=== PATIENT | male | born 1960 | race Caucasian/White ===

== ENCOUNTER 2019-07-07 14:01 | Inpatient (IN) | payer OTHER ==
[~2019-07-07] VITALS: Ht 177.8 cm; Wt 66.8 kg
--- OUTSIDE RECORDS SUMMARY | 2019-07-07 14:04 | XMS REPORT ---
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 Allergies, Adverse Reactions, Alerts Allergy Name Allergy Type Status Severity Reaction(s) Onset Date Inactive Date Treating Clinician Comments No Known Allergies DA Active U 2016-07-17 00:00:00 Medications This patient has no known medications. Results Test Description Test Time Test Comments Text Results Atomic Results Result Comments [facility] 2019-02-06 15:18:00 RUN DATE: 02/06/19 [place] - Lab PAGE 1 RUN TIME: 1519 Specimen Inquiry RUN USER: INTERFACE PATIENT: ELIOT PRATT LOC: PRADIP U #: [id number] AGE/SX: 58/M ROOM: RE02/05/19[facility] DR: Babatunde Layne MD : 60 BED: DIS: STATUS: [facility] TLOC: SPEC #: [id number] RECD: 02/05/19 STATUS: EMELINAYordan MARSHALL #: [id number] JOSE: 02/05/19 DR: Babatunde Layne MD ENTERED: 02/05/19 SP TYPE: STOMACH OTHR DR: Chad Presley MD ORDERED: GROSS COPIES TO: Babatunde Layne MD [address] [address] Chad Presley MD [address] [place] [address] PROCEDURES: GROSS (02/06/19-3128) TISSUES: 1. ANTRAL BIOPSY - H-PYLORI 2. BODY BIOPSY OF STOMACH - BX 3. ESOPHAGUS, NOS - BX 4. TRANSVERSE COLON - POLYP CLINICAL HISTORY COLLECTION DATE: 02/05/19 AP FINAL DIAGNOSIS Antrum, biopsy: REACTIVE GASTROPATHY WITH PATCHY MILD CHRONIC INFLAMMATION NO INTESTINAL METAPLASIA SEEN NEGATIVE FOR HE LICOBACTER PYLORI NEGATIVE FOR MALIGNANCY Body of stomach, biopsy: MILD CHRONIC INFLAMMATION, GASTRIC MUCOSA NO INTESTINAL METAPLASIA SEEN NEGATIVE FOR HELICOBACTER PYLORI NEGATIVE FOR MALIGNANCY Esophagus, rule out Cooper's, biopsy: ACUTE AND CHRONIC INFLAMMATION AND REACTIVE EPITHELIAL CHANGES, MIXED SQUAMOUS ESOPHAGEAL AND GASTRIC-TYPE MUCOSA CONTINUED ON NEXT PAGE RUN DATE: 02/06/19 [place] [facility] PAGE 2 RUN TIME: 1519 Specimen Inquiry RUN USER: INTERFACE SPEC #: [id number] PATIENT: ELIOT PRATT #[id number] (Continued) FINAL DIAGNOSIS (Continued) NEGATIVE FOR INTESTINAL METAPLASIA, DYSPLASIA, AND MALIGNANCY Transverse colon, polyp, snare polypectomy: TUBULAR ADENOMA NEGATIVE FOR MALIGNANCY [facility] LANIER/tonia Bryan [id number], [phone] MACROSCOPIC The first specimen is received in formalin, labeled with the patient's name, and identified as "antrum bx", and consists of two drew biopsy tissue measuring 0.4 cm, submitted as (1) for H E and Giemsa stains. The second specimen is received in formalin, labeled with the patient's name, and identified as "body of stomach", and consists of two drew biopsy tissue measuring 0.4 and 0.5 cm, submitted as (2). The third specimen is received in formalin, labeled with the patient's name, and identified as "esophagus bx rule out Cooper's", and consists of multiple drew biopsy tissue measuring 0.8 x 0.4 x 0.2 cm in aggreg ate, submitted as (3). The fourth specimen is received in formalin, labeled with the patient's name, and identified as "transverse colon polyp", and consists of two drew biopsy tissue measuring 0.1 and 0.2 cm, submitted as (4). GROSS PERFORMED AT [facility] [address] [place] [address] (P)[phone] MICROSCOPIC All of the stains, including any controls performed, stain appropriately. MICROSCOPIC PERFORMED AT [facility] [address] [place] [address] (P)[phone] CONTINUED ON NEXT PAGE RUN DATE: 02/06/19 [facility] Lab PAGE 3 RUN TIME: 1519 Specimen Inquiry RUN USER: INTERFACE SPEC #: [id number] PATIENT: ELIOT PRATT #[id number] (Continued) PERFORMING SITE Diagnosis performed at: [facility] [address] [facility], [place] [phone] --------- Signed SIGNATURE ON FILE Diane Curry MD 02/06/19 1518 END OF REPORT GLUBED 2019-02-05 07:55:00 GLUBED (test code=GLUBED) 101 mg/dL 74-106 Performed by certified dry kiln operator helper at [facility] CBC W/AUTO [id number] 19:55:00* Test Item Value Reference Range Comments WHITE BLOOD CELL (test code=WBC) 8.6 K/mm3 4.5-12.5 RED BLOOD CELL (test code=RBC) 5.26 mill/mm3 4.0-5.8 HEMOGLOBIN (test code=HGB) 12.3 gram/dL 13.0-17.5 HEMATOCRIT (test code=HCT) 41.2 % 42.0-52.0 MEAN CELL VOLUME (test code=MCV) 78.3 fL 80-98 MEAN CELL HGB (test code=MCH) 23.4 picogram 27.0-33.0 MEAN CELL HGB CONCETRATION (test code=MCHC) 29.9 gram/dL 33.0-36.0 RED CELL DISTRIBUTION WIDTH (test code=RDW) 15.9 % 11.6-16.2 RED CELL DISTRIBUTION WIDTH SD (test code=RDW-SD) 44.7 fL 37.0-51.0 PLATELET COUNT (test code=PLT) 235 K/mm3 150-450 MEAN PLATELET VOLUME (test code=MPV) 9.5 fL 6.7-11.0 NEUTROPHIL % (test code=NT%) 71.8 % 39.0-69.0 IMMATURE GRANULOCYTE % (test code=IG%) 0.3 % 0.0-5.0 LYMPHOCYTE % (test code=LY%) 20.4 % 25.0-55.0 MONOCYTE % (test code=MO%) 4.2 % 0.0-10.0 EOSINOPHIL % (test code=EO%) 2.4 % 0.0-5.0 BASOPHIL % (test code=BA%) 0.9 % 0.0-1.0 NUCLEATED RBC % (test code=NRBC%) 0.0 % 0-0 NEUTROPHIL # (test code=NT#) 6.18 K/mm3 1.8-7.7 IMMATURE GRANULOCYTE # (test code=IG#) 0.03 x10 3/uL 0-0.03 LYMPHOCYTE # (test code=LY#) 1.76 K/mm3 1.0-5.0 MONOCYTE # (test code=MO#) 0.36 K/mm3 0-0.8 EOSINOPHIL # (test code=EO#) 0.21 K/mm3 0.0-0.5 BASOPHIL # (test code=BA#) 0.08 K/mm3 0.0-0.2 NUCLEATED RBC # (test code=NRBC#) 0.00 K/mm3 0.0-0.1 MANUAL DIFF REQUIRED (test code=MDIFF) NO, ONLY SCAN NEEDED DIFFERENTIAL [id number] 19:55:00* Test Item Value Reference Range Comments STAIN ACCEPTABILITY (test code=STN ACCEPTABLE) STAIN ACCEPTABLE POIKILOCYTOSIS (test code=POIK) 2+ ANISOCYTOSIS (test code=ANISO) 2+ MICROCYTOSIS (test code=MICR) 2+ ELLIPTOCYTES (test code=ELL) 2+ CRENATED CELLS (test code=CREN) 1+ PLATELET ESTIMATE (test code=PLTEST) ADEQUATE PLATELET MORPHOLOGY (test code=PLTMORPH) NORMAL BASIC METABOLIC [id number] 15:38:00* Test Item Value Reference Range Comments SODIUM (test code=NA) 142 mmol/L 136-145 POTASSIUM (test code=K) 3.7 mmol/L 3.5-5.1 CHLORIDE (test code=CL) 107.0 mmol/L 98-107 CARBON DIOXIDE (test code=CO2) 26.0 mmol/L 21-32 ANION GAP (test code=GAP) 12.7 10-20 GLUCOSE (test code=GLU) 147 mg/dL 74-106 BLOOD UREA NITROGEN (test code=BUN) 6 mg/dL 7-18 GLOMERULAR FILTRATION RATE (test code=GFR) > 60 mL/min >=60 Estimated GFR by using Modified MDRD formula.Chronic kidney disease is defined as either kidney damageor GFR <60 mL/min/1.73 m2 for >3 months. CREATININE (test code=CREAT) 0.90 mg/dL 0.7-1.3 BUN/CREATININE RATIO (test code=BUN/CREA) 6.4 10-20 CALCIUM (test code=CA) 8.8 mg/dL 8.5-10.1 HEPATIC FUNCTION [id number] 15:38:00* Test Item Value Reference Range Comments TOTAL PROTEIN (test code=PROT) 7.4 gram/dL 6.4-8.2 ALBUMIN (test code=ALB) 3.7 g/dL 3.4-5.0 GLOBULIN (test code=GLOB) 3.7 gram/dL 2.7-4.2 ALBUMIN/GLOBULIN RATIO (test code=A/G) 1.0 0.75-1.50 BILIRUBIN TOTAL (test code=BILT) 0.40 mg/dL 0.0-1.0 BILIRUBIN DIRECT (test code=BILD) 0.08 mg/dL 0.0-0.20 SGOT/AST (test code=AST) 11 IUnit/L 15-37 SGPT/ALT (test code=ALT) 15 IUnit/L 12-78 ALKALINE PHOSPHATASE TOTAL (test code=ALKP) 87 IUnit/L 45-117 Note change in reference range due to change in reagent. BASIC METABOLIC [id number] 15:28:00* Test Item Value Reference Range Comments SODIUM (test code=NA) 142 mmol/L 136-145 POTASSIUM (test code=K) 3.7 mmol/L 3.5-5.1 CHLORIDE (test code=CL) 107.0 mmol/L 98-107 CARBON DIOXIDE (test code=CO2) mmol/L 21-32 ANION GAP (test code=GAP) 10-20 GLUCOSE (test code=GLU) mg/dL 74-106 BLOOD UREA NITROGEN (test code=BUN) mg/dL 7-18 GLOMERULAR FILTRATION RATE (test code=GFR) mL/min >=60 CREATININE (test code=CREAT) mg/dL 0.7-1.3 BUN/CREATININE RATIO (test code=BUN/CREA) 10-20 CALCIUM (test code=CA) mg/dL 8.5-10.1 HEPATIC FUNCTION [id number] 15:28:00* Test Item Value Reference Range Comments TOTAL PROTEIN (test code=PROT) gram/dL 6.4-8.2 ALBUMIN (test code=ALB) g/dL 3.4-5.0 GLOBULIN (test code=GLOB) gram/dL 2.7-4.2 ALBUMIN/GLOBULIN RATIO (test code=A/G) 0.75-1.50 BILIRUBIN TOTAL (test code=BILT) mg/dL 0.0-1.0 BILIRUBIN DIRECT (test code=BILD) mg/dL 0.0-0.20 SGOT/AST (test code=AST) IUnit/L 15-37 SGPT/ALT (test code=ALT) IUnit/L 12-78 ALKALINE PHOSPHATASE TOTAL (test code=ALKP) IUnit/L 45-117 PROTHROMBIN [id number] 15:13:00* Test Item Value Reference Range Comments PROTHROMBIN TIME PATIENT (test code=PTP) 13.5 seconds 9.0-14.0 INTERNATIONAL NORMAL RATIO (test code=INR) 1.1 0.8-1.2 The therapeutic range for oral anticoagulant therapy formost indications is an international normalized ratio (INR)of between 2.0 and 3.0. The recommended therapeutic INRrange for various clinical situations is listed below: Clinical Situation INR range Pulmonary e mbolism treatment (2.0-3.0)Venous thrombosis treatmentVenous thrombosis prophylaxis (high risk surgery)Prevention of systemic embolism from: Acute myocardial infarction Valvular heart disease Atrial fibrillation Mechanical prosthetic heart valves (2.5-3.5) IS PATIENT ON ANTICOAGULANTS? NTHROMBOPLASTIN TIME [id number] 15:13:00* Test Item Value Reference Range Comments THROMBOPLASTIN TIME PARTIAL (test code=PTT) 35.8 seconds 25.0-36.5 IS PATIENT ON ANTICOAGULANTS? NCBC W/AUTO [id number] 15:00:00* Test Item Value Reference Range Comments WHITE BLOOD CELL (test code=WBC) 8.6 K/mm3 4.5-12.5 RED BLOOD CELL (test code=RBC) 5.26 mill/mm3 4.0-5.8 HEMOGLOBIN (test code=HGB) 12.3 gram/dL 13.0-17.5 HEMATOCRIT (test code=HCT) 41.2 % 42.0-52.0 MEAN CELL VOLUME (test code=MCV) 78.3 fL 80-98 MEAN CELL HGB (test code=MCH) 23.4 picogram 27.0-33.0 MEAN CELL HGB CONCETRATION (test code=MCHC) 29.9 gram/dL 33.0-36.0 RED CELL DISTRIBUTION WIDTH (test code=RDW) 15.9 % 11.6-16.2 RED CELL DISTRIBUTION WIDTH SD (test code=RDW-SD) 44.7 fL 37.0-51.0 PLATELET COUNT (test code=PLT) 235 K/mm3 150-450 MEAN PLATELET VOLUME (test code=MPV) 9.5 fL 6.7-11.0 NEUTROPHIL % (test code=NT%) 71.8 % 39.0-69.0 IMMATURE GRANULOCYTE % (test code=IG%) 0.3 % 0.0-5.0 LYMPHOCYTE % (test code=LY%) 20.4 % 25.0-55.0 MONOCYTE % (test code=MO%) 4.2 % 0.0-10.0 EOSINOPHIL % (test code=EO%) 2.4 % 0.0-5.0 BASOPHIL % (test code=BA%) 0.9 % 0.0-1.0 NUCLEATED RBC % (test code=NRBC%) 0.0 % 0-0 NEUTROPHIL # (test code=NT#) 6.18 K/mm3 1.8-7.7 IMMATURE GRANULOCYTE # (test code=IG#) 0.03 x10 3/uL 0-0.03 LYMPHOCYTE # (test code=LY#) 1.76 K/mm3 1.0-5.0 MONOCYTE # (test code=MO#) 0.36 K/mm3 0-0.8 EOSINOPHIL # (test code=EO#) 0.21 K/mm3 0.0-0.5 BASOPHIL # (test code=BA#) 0.08 K/mm3 0.0-0.2 NUCLEATED RBC # (test code=NRBC#) 0.00 K/mm3 0.0-0.1 MANUAL DIFF REQUIRED (test code=MDIFF) NO, ONLY SCAN NEEDED DIFFERENTIAL [id number] 15:00:00* Test Item Value Reference Range Comments STAIN ACCEPTABILITY (test code=STN ACCEPTABLE) CABOT RINGS (test code=CAB) MORPHOLOGY COMMENT (test code=MOC) PLATELET ESTIMATE (test code=PLTEST) PLATELET MORPHOLOGY (test code=PLTMORPH) CBC W/AUTO [id number] 15:00:00* Test Item Value Reference Range Comments WHITE BLOOD CELL (test code=WBC) 8.6 K/mm3 4.5-12.5 RED BLOOD CELL (test code=RBC) 5.26 mill/mm3 4.0-5.8 HEMOGLOBIN (test code=HGB) 12.3 gram/dL 13.0-17.5 HEMATOCRIT (test code=HCT) 41.2 % 42.0-52.0 MEAN CELL VOLUME (test code=MCV) 78.3 fL 80-98 MEAN CELL HGB (test code=MCH) 23.4 picogram 27.0-33.0 MEAN CELL HGB CONCETRATION (test code=MCHC) 29.9 gram/dL 33.0-36.0 RED CELL DISTRIBUTION WIDTH (test code=RDW) 15.9 % 11.6-16.2 RED CELL DISTRIBUTION WIDTH SD (test code=RDW-SD) 44.7 fL 37.0-51.0 PLATELET COUNT (test code=PLT) 235 K/mm3 150-450 MEAN PLATELET VOLUME (test code=MPV) 9.5 fL 6.7-11.0 NEUTROPHIL % (test code=NT%) 71.8 % 39.0-69.0 IMMATURE GRANULOCYTE % (test code=IG%) 0.3 % 0.0-5.0 LYMPHOCYTE % (test code=LY%) 20.4 % 25.0-55.0 MONOCYTE % (test code=MO%) 4.2 % 0.0-10.0 EOSINOPHIL % (test code=EO%) 2.4 % 0.0-5.0 BASOPHIL % (test code=BA%) 0.9 % 0.0-1.0 NUCLEATED RBC % (test code=NRBC%) 0.0 % 0-0 NEUTROPHIL # (test code=NT#) 6.18 K/mm3 1.8-7.7 IMMATURE GRANULOCYTE # (test code=IG#) 0.03 x10 3/uL 0-0.03 LYMPHOCYTE # (test code=LY#) 1.76 K/mm3 1.0-5.0 MONOCYTE # (test code=MO#) 0.36 K/mm3 0-0.8 EOSINOPHIL # (test code=EO#) 0.21 K/mm3 0.0-0.5 BASOPHIL # (test code=BA#) 0.08 K/mm3 0.0-0.2 NUCLEATED RBC # (test code=NRBC#) 0.00 K/mm3 0.0-0.1 MANUAL DIFF REQUIRED (test code=MDIFF) NO, ONLY SCAN NEEDED DIFFERENTIAL [id number] 15:00:00* Test Item Value Reference Range Comments STAIN ACCEPTABILITY (test code=STN ACCEPTABLE) CABOT RINGS (test code=CAB) MORPHOLOGY COMMENT (test code=MOC) PLATELET ESTIMATE (test code=PLTEST) PLATELET MORPHOLOGY (test code=PLTMORPH) CBC W/AUTO [id number] 15:00:00* Test Item Value Reference Range Comments WHITE BLOOD CELL (test code=WBC) 8.6 K/mm3 4.5-12.5 RED BLOOD CELL (test code=RBC) 5.26 mill/mm3 4.0-5.8 HEMOGLOBIN (test code=HGB) 12.3 gram/dL 13.0-17.5 HEMATOCRIT (test code=HCT) 41.2 % 42.0-52.0 MEAN CELL VOLUME (test code=MCV) 78.3 fL 80-98 MEAN CELL HGB (test code=MCH) 23.4 picogram 27.0-33.0 MEAN CELL HGB CONCETRATION (test code=MCHC) 29.9 gram/dL 33.0-36.0 RED CELL DISTRIBUTION WIDTH (test code=RDW) 15.9 % 11.6-16.2 RED CELL DISTRIBUTION WIDTH SD (test code=RDW-SD) 44.7 fL 37.0-51.0 PLATELET COUNT (test code=PLT) 235 K/mm3 150-450 MEAN PLATELET VOLUME (test code=MPV) 9.5 fL 6.7-11.0 NEUTROPHIL % (test code=NT%) 71.8 % 39.0-69.0 IMMATURE GRANULOCYTE % (test code=IG%) 0.3 % 0.0-5.0 LYMPHOCYTE % (test code=LY%) 20.4 % 25.0-55.0 MONOCYTE % (test code=MO%) 4.2 % 0.0-10.0 EOSINOPHIL % (test code=EO%) 2.4 % 0.0-5.0 BASOPHIL % (test code=BA%) 0.9 % 0.0-1.0 NUCLEATED RBC % (test code=NRBC%) 0.0 % 0-0 NEUTROPHIL # (test code=NT#) 6.18 K/mm3 1.8-7.7 IMMATURE GRANULOCYTE # (test code=IG#) 0.03 x10 3/uL 0-0.03 LYMPHOCYTE # (test code=LY#) 1.76 K/mm3 1.0-5.0 MONOCYTE # (test code=MO#) 0.36 K/mm3 0-0.8 EOSINOPHIL # (test code=EO#) 0.21 K/mm3 0.0-0.5 BASOPHIL # (test code=BA#) 0.08 K/mm3 0.0-0.2 NUCLEATED RBC # (test code=NRBC#) 0.00 K/mm3 0.0-0.1 MANUAL DIFF REQUIRED (test code=MDIFF) NO, ONLY SCAN NEEDED DIFFERENTIAL [id number] 15:00:00* Test Item Value Reference Range Comments STAIN ACCEPTABILITY (test code=STN ACCEPTABLE) MORPHOLOGY COMMENT (test code=MOC) PLATELET ESTIMATE (test code=PLTEST) PLATELET MORPHOLOGY (test code=PLTMORPH) CBC W/AUTO [id number] 15:00:00* Test Item Value Reference Range Comments WHITE BLOOD CELL (test code=WBC) 8.6 K/mm3 4.5-12.5 RED BLOOD CELL (test code=RBC) 5.26 mill/mm3 4.0-5.8 HEMOGLOBIN (test code=HGB) 12.3 gram/dL 13.0-17.5 HEMATOCRIT (test code=HCT) 41.2 % 42.0-52.0 MEAN CELL VOLUME (test code=MCV) 78.3 fL 80-98 MEAN CELL HGB (test code=MCH) 23.4 picogram 27.0-33.0 MEAN CELL HGB CONCETRATION (test code=MCHC) 29.9 gram/dL 33.0-36.0 RED CELL DISTRIBUTION WIDTH (test code=RDW) 15.9 % 11.6-16.2 RED CELL DISTRIBUTION WIDTH SD (test code=RDW-SD) 44.7 fL 37.0-51.0 PLATELET COUNT (test code=PLT) 235 K/mm3 150-450 MEAN PLATELET VOLUME (test code=MPV) 9.5 fL 6.7-11.0 NEUTROPHIL % (test code=NT%) 71.8 % 39.0-69.0 IMMATURE GRANULOCYTE % (test code=IG%) 0.3 % 0.0-5.0 LYMPHOCYTE % (test code=LY%) 20.4 % 25.0-55.0 MONOCYTE % (test code=MO%) 4.2 % 0.0-10.0 EOSINOPHIL % (test code=EO%) 2.4 % 0.0-5.0 BASOPHIL % (test code=BA%) 0.9 % 0.0-1.0 NUCLEATED RBC % (test code=NRBC%) 0.0 % 0-0 NEUTROPHIL # (test code=NT#) 6.18 K/mm3 1.8-7.7 IMMATURE GRANULOCYTE # (test code=IG#) 0.03 x10 3/uL 0-0.03 LYMPHOCYTE # (test code=LY#) 1.76 K/mm3 1.0-5.0 MONOCYTE # (test code=MO#) 0.36 K/mm3 0-0.8 EOSINOPHIL # (test code=EO#) 0.21 K/mm3 0.0-0.5 BASOPHIL # (test code=BA#) 0.08 K/mm3 0.0-0.2 NUCLEATED RBC # (test code=NRBC#) 0.00 K/mm3 0.0-0.1 MANUAL DIFF REQUIRED (test code=MDIFF) NO, ONLY SCAN NEEDED DIFFERENTIAL [id number] 15:00:00* Test Item Value Reference Range Comments STAIN ACCEPTABILITY (test code=STN ACCEPTABLE) CABOT RINGS (test code=CAB) MORPHOLOGY COMMENT (test code=MOC) PLATELET ESTIMATE (test code=PLTEST) PLATELET MORPHOLOGY (test code=PLTMORPH) - XR CHEST 2 [id number] 14:24:00 FAX: Chivo Diez MD [phone] [place]: O St: REG Name: Eliel MCALLISTERELIOT AGARWAL [facility] : [birth year] Age/S: 58/M [address] [facility] Unit #: [id number] Loc: [place] [address] Phys: Chivo Byrnes MD Acct: [id number] Dis Date: Status: REG CLI PHONE #: [phone] Exam Date: 01/20/2019 1353 FAX #: [phone] Reason: COPD EXAMS: CPT CODE: [id number] XR CHEST 2 V 87947 REASON FOR EXAM: COPD Exam Order Date: 01/20/2019 1:40 PM Ordering M.D.: Chivo Byrnes MD PROCEDURE: - XR CHEST 2 V COMPARISON: Chest radiograph December 30, [address] chest July 18, 2016 FINDINGS: There are fibrotic changes throughout both lungs with lower lobe predilection. This appears grossly unchanged from the previous examination. A superimposed acute infection would be difficult to exclude. Cardiac mediastinal silhouette is normal in size. Degenerative changes are present in the spine. Air-fluid levels ar e seen in the visualized upper abdomen. IMPRESSION: 1. Fibrotic changes throughout both lungs demonstrated to be most consistent with a UIP pattern of interstitial lung disease in the previous CT chest. These appear stable from the previous radiograph December 2017. Superimposed acute infection would be difficult to exclude. 2. Air-fluid levels in the visualized abdomen. If there is concern for bowel obstruction then dedicated abdominal imaging may be performed. at 1421 Reported and signed by: Brenton Logan MD PAGE 1 Signed Report (CONTINUED) FAX: Chivo Diez MD [phone] [place]: O St: REG Name: J LUIS ZavalaELIOT AGARWAL [facility] : 1960 Age/S: 58/M [address] [facility] Unit #: [id number] L oc: [place] [address] Phys: Chivo Byrnes MD Acct: [id number] Dis Date: Status: REG CLI PHONE #: [phone] Exam Date: 01/20/2019 1353 FAX #: [phone] Re ason: COPD EXAMS: CPT CODE: [id number] XR CHEST 2 V 51876 <Continued> CC: Chivo Byrnes MD Technologist: MOHAMUD George) Trnscrd Date/Time/By: 01/20/2019 (3647) : By: [email or web address] Orig Print D/T: S: 01/20/2019 (0880) PAGE 2 Signed Report
[2019-07-07] MEDS ORDERED: KETOROLAC TROMETHAMINE 30 MG/ML VIAL IV NR (14:42)
[2019-07-07] MEDS ORDERED: CEFTRIAXONE SOD 1 GM/NS 50 ML 50 ML IV ONE (14:45)
[2019-07-07] MEDS ORDERED: ALBUTEROL/IPRATROPIUM 3 ML NEB NEB ONE (14:45)
[2019-07-07 14:47] LABS: BASOPHILS # (AUTO) 0.1 (0.0-0.1); BASOPHILS % 0.5 % (0.0-1.0); EOSINOPHILS # (AUTO) 0.1 (0.0-0.4); EOSINOPHILS % 0.7 % (0.0-6.0); HEMOGLOBIN 11.8 g/dL (14.0-18.0); LYMPHOCYTES # (AUTO) 0.6 (1.0-3.2); LYMPHOCYTES % 3.3 % (18.0-39.1); MEAN CORPUSCULAR HEMOGLOBIN 23.8 pg (28-32); MEAN CORPUSCULAR HGB CONC 31.9 g/dL (31-35); MEAN CORPUSCULAR VOLUME 74.6 fL (81-99); MONOCYTES # (AUTO) 0.9 (0.2-0.8); MONOCYTES % 4.5 % (4.4-11.3); NEUTROPHILS # (AUTO) 17.4 (2.1-6.9); NEUTROPHILS % 89.9 % (38.7-80.0); PLATELET COUNT 218 x10e3/uL (140-360); RED BLOOD COUNT 4.96 x10e6/uL (4.3-5.7)
[2019-07-07 14:59] LABS: ALBUMIN 3.2 g/dL (3.5-5.0); ALBUMIN/GLOBULIN RATIO 1.1 (0.8-2.0); BLOOD UREA NITROGEN 13 mg/dL (7-26); BUN/CREATININE RATIO 12 (6-25); CALCIUM 8.6 mg/dL (8.4-10.2); CARBON DIOXIDE 20 mmol/L (22-29); CHLORIDE 99 mmol/L (98-107); CREATININE, SERUM 1.12 mg/dL (0.72-1.25); EST GLOMERULAR FILTRATION RATE > 60 ML/MIN (60-); GLUCOSE 141 mg/dL (74-118); SODIUM 130 mmol/L (136-145)
[2019-07-07] MEDS ORDERED: METHYLPREDNISOLONE SOD SUCC 125 MG/2ML VIAL IV NR (15:00)
[2019-07-07] MEDS ORDERED: SODIUM CHLORIDE 0.9% 1000ML 2,000 ML ONE (15:14)
[2019-07-07] MEDS: SODIUM CHLORIDE 0.9% 1000ML 2,000 ML IV SCH ×2 (15:15→20:08)
[2019-07-07 15:27] LABS: STREPTOCOCCUS GRP A ANTIGEN NEGATIVE (NEGATIVE)
[2019-07-07 15:45] LABS: INFLUENZAE A&B ANTIGEN (RAPID) NEGATIVE (NEGATIVE)
[2019-07-07 16:03] LABS: ALANINE AMINOTRANSFERASE 17 IU/L (0-55); ALKALINE PHOSPHATASE 61 IU/L (40-150)
--- NOTE | 2019-07-07 16:07 | Diagnostic Imaging Report ---
Examination: Single AP view of the chest. COMPARISON: None. INDICATION: Shortness of breath DISCUSSION: The lungs are well-inflated. There are coarse bilateral reticular/interstitial opacities with a lower lung zone predominance. More focal consolidation in the left upper lobe. No pleural effusion. Heart size is normal for technique. No acute osseous abnormality. IMPRESSION: Left upper lobe consolidative opacity is concerning for pneumonia in the appropriate clinical setting. A mass lesion may have a similar appearance, and CT scan of the chest should be considered for further evaluation. Background findings are concerning for interstitial lung disease/pulmonary fibrosis. Signed by: Dr. Antonio Moura M.D. on 07/07/2019 4:04 PM
[2019-07-07] MEDS ORDERED: VANCOMYCIN 1GM/NS 250 ML 250 ML IV STA (16:30)
[2019-07-07 16:42] LABS: CREATINE KINASE 92 IU/L (30-200)
[2019-07-07] MEDS ORDERED: SODIUM CHLORIDE 0.9% 1000ML 1,000 ML IV ONE (16:45)
[2019-07-07] MEDS ORDERED: SODIUM CHLORIDE 0.9% 1000ML 1,000 ML ONE (16:46)
[2019-07-07 17:42] LABS: ABG HCO3 17 mmol/L (23-28); ABG PCO2 32 mmHg (41-51); ABG PH 7.34 (7.31-7.41); ABG PO2 56 mmHg (80-105)
--- NOTE | 2019-07-07 17:48 | Diagnostic Imaging Report ---
EXAM: CT Chest WITH intravenous contrast 07/07/2019 4:29 PM INDICATION: Shortness of breath, abnormal chest radiograph COMPARISON: Chest radiograph of earlier the same day TECHNIQUE: Chest was scanned utilizing a multidetector helical scanner from the lung apex through the level of the adrenal glands after administration of IV contrast. Coronal and sagittal reformations were obtained. Routine protocol was performed. IV CONTRAST: 100mL Isovue 370 RADIATION DOSE: Total DLP: 549.6 mGy*cm. Dose modulation, iterative reconstruction, and/or weight based adjustment of the mA/kV was utilized to reduce the radiation dose to as low as reasonably achievable. COMPLICATIONS: None FINDINGS: LINES/ TUBES: None. LUNGS AND AIRWAYS: Upper lobe predominant centrilobular emphysema. Severe background of lower lobe predominant architectural distortion and pulmonary fibrosis with bronchiectasis and honeycombing consistent with interstitial lung disease. Consolidation at the left lung apex with air bronchograms. PLEURA: Trace left pleural effusion. No right pleural effusion. No pneumothorax. HEART AND MEDIASTINUM: The thyroid gland is normal. No supraclavicular lymphadenopathy. Mediastinal lymphadenopathy measures up to 1.7 x 1.2 cm at the prevascular space (series 2 image 46), 1.5 x 2.0 at the pretracheal station (series 2 image 46) and up to 3.1 x 2.0 at the subcarinal station (series 2 image 58). Bilateral hilar lymphadenopathy measures up to 1.0 cm short axis on the left and 1.2 cm short axis on the right. No axillary lymphadenopathy.. The heart is not enlarged. No pericardial effusion. Scattered atherosclerotic calcifications of the coronary arteries and aorta. UPPER ABDOMEN: Small sliding hiatal hernia. Otherwise, no acute findings. BONES: No acute osseous injury. No suspicious lytic or blastic lesions. SOFT TISSUES: Unremarkable. IMPRESSION: Left upper lobe consolidation with air bronchograms, consistent with pneumonia in the proper clinical setting. Hilar and mediastinal lymphadenopathy could be reactive in the acute infectious setting. Recommend short interval follow-up chest CT in 3 months following treatment to exclude underlying malignancy. 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 Superimposed centrilobular emphysema. Signed by: Jose G Rangel MD on 07/07/2019 5:46 PM
[2019-07-07] MEDS ORDERED: CEFEPIME 1GM/NS 0.9% 50 ML 50 ML IV SCH (18:00)
[2019-07-07] MEDS: SODIUM CHLORIDE 0.9% 1000ML 1,000 ML IV SCH (18:15)
[2019-07-07] MEDS ORDERED: IOPAMIDOL 370 MG/ML 200 ML INFUS..BTL INJ ONE (18:43)
[2019-07-07] MEDS ORDERED: SODIUM CHLORIDE 0.9% 50ML 50 ML ONE (18:43)
[2019-07-07 19:00] VITALS: BP 86/66
[2019-07-07 19:01] LABS: BILIRUBIN,URINE NEGATIVE (NEGATIVE); CLARITY,URINE CLEAR (CLEAR); COLOR,URINE YELLOW (YELLOW); KETONES,URINE NEGATIVE (NEGATIVE); LEUKOCYTE ESTERASE ,URINE NEGATIVE (NEGATIVE); NITRITE,URINE NEGATIVE (NEGATIVE); PROTEIN,URINE DIPSTICK TRACE (NEGATIVE); URINE UROBILINOGEN 0.2 mg/dL (0.2 - 1)
[2019-07-07 19:08] LABS: ANISOCYTOSIS SLIGHT; LYMPHOCYTES % (MANUAL) 2 % (19-48); MONOCYTES % (MANUAL) 4 % (3.4-9.0); NEUTROPHILS % (MANUAL) 94 % (40-74); PLATELET MORPHOLOGY COMMENT NORMAL; POIKILOCYTOSIS SLIGHT; RBC MORPHOLOGY COMMENT NORMAL
[2019-07-07 19:09] LABS: PLATELET ESTIMATE ADEQUATE
[2019-07-07 19:13] LABS: EPITHELIAL CELLS,URINE FEW /LPF; RBC,URINE 0-5 /HPF (0-5)
--- NOTE | 2019-07-07 19:30 | NUR ---
Received patient as a new admission, no complaints raised, on IV sodium chloride, voids via urinal, calm vitals stable
[2019-07-07 20:00] VITALS: BP_SYST 106; BP_SYST 94; BP_DIAS 65; BP_DIAS 66
[2019-07-07 21:00] VITALS: BP 96/59
[2019-07-07 22:00] VITALS: BP 84/51
[2019-07-07 23:00] VITALS: BP 114/73
[2019-07-08] VITALS (27 sets, daily range): BP systolic 101–128; BP diastolic 47–77
--- NOTE | 2019-07-08 | NUR ---
Patient calmly asleep, no complaints raised.
[2019-07-08] MEDS: SODIUM CHLORIDE 0.9% 1000ML 1,000 ML IV SCH ×3 (03:00→21:08)
[2019-07-08 05:18] LABS: BASOPHILS % 0.2 % (0.0-1.0); HEMATOCRIT 33.8 % (38.2-49.6); HEMOGLOBIN 10.2 g/dL (14.0-18.0); LYMPHOCYTES # (AUTO) 0.7 (1.0-3.2); LYMPHOCYTES % 5.7 % (18.0-39.1); MEAN CORPUSCULAR HEMOGLOBIN 23.7 pg (28-32); MEAN CORPUSCULAR HGB CONC 30.2 g/dL (31-35); MEAN CORPUSCULAR VOLUME 78.4 fL (81-99); MONOCYTES # (AUTO) 0.6 (0.2-0.8); MONOCYTES % 4.6 % (4.4-11.3); NEUTROPHILS # (AUTO) 10.7 (2.1-6.9); NEUTROPHILS % 88.4 % (38.7-80.0); PLATELET COUNT 163 x10e3/uL (140-360); RED BLOOD COUNT 4.31 x10e6/uL (4.3-5.7); RED CELL DISTRIBUTION WIDTH 15.1 % (11.7-14.4)
[2019-07-08 05:30] LABS: ALANINE AMINOTRANSFERASE 20 IU/L (0-55); ALBUMIN 2.7 g/dL (3.5-5.0); ALBUMIN/GLOBULIN RATIO 0.9 (0.8-2.0); ALKALINE PHOSPHATASE 46 IU/L (40-150); ANION GAP 10.6 mmol/L (8-16); BLOOD UREA NITROGEN 16 mg/dL (7-26); BUN/CREATININE RATIO 15 (6-25); CALCIUM 8.1 mg/dL (8.4-10.2); CARBON DIOXIDE 22 mmol/L (22-29); CHLORIDE 109 mmol/L (98-107); CREATININE, SERUM 1.08 mg/dL (0.72-1.25); EST GLOMERULAR FILTRATION RATE > 60 ML/MIN (60-); GLUCOSE 311 mg/dL (74-118); POTASSIUM 4.6 mmol/L (3.5-5.1); SODIUM 137 mmol/L (136-145)
[2019-07-08 06:33] LABS: EOSINOPHILS % (MANUAL) 1 % (0-7); LYMPHOCYTES % (MANUAL) 5 % (19-48); MONOCYTES % (MANUAL) 4 % (3.4-9.0); NEUTROPHILS % (MANUAL) 90 % (40-74); PLATELET ESTIMATE ADEQUATE; PLATELET MORPHOLOGY COMMENT NORMAL; RBC MORPHOLOGY COMMENT NORMAL
[2019-07-08] MEDS ORDERED: ACETAMINOPHEN 325 MG TAB PO PRN (08:45)
[2019-07-08] MEDS ORDERED: LACTULOSE SYRUP 20 GM/30 ML UDC PO PRN (09:00)
[2019-07-08] MEDS ORDERED: DEXTROSE 50% SYRINGE 50 ML IV PRN (09:00)
[2019-07-08 09:12] LABS: BASOPHILS % 0.2 % (0.0-1.0); HEMATOCRIT 33.5 % (38.2-49.6); HEMOGLOBIN 10.4 g/dL (14.0-18.0); LYMPHOCYTES # (AUTO) 0.7 (1.0-3.2); LYMPHOCYTES % 5.3 % (18.0-39.1); MEAN CORPUSCULAR HEMOGLOBIN 24.2 pg (28-32); MEAN CORPUSCULAR VOLUME 77.9 fL (81-99); MONOCYTES # (AUTO) 0.5 (0.2-0.8); MONOCYTES % 4.1 % (4.4-11.3); NEUTROPHILS # (AUTO) 11.5 (2.1-6.9); NEUTROPHILS % 89.6 % (38.7-80.0); PLATELET COUNT 170 x10e3/uL (140-360); RED CELL DISTRIBUTION WIDTH 15.2 % (11.7-14.4)
[2019-07-08] MEDS: LACTULOSE SYRUP 20 GM/30 ML UDC PO SCH (11:05)
[2019-07-08] MEDS: INSULIN LISPRO 100 UNIT/1 ML 3ML VIAL SQ SCH ×3 (11:41→21:06)
[2019-07-08] MEDS: CEFEPIME 1GM/NS 0.9% 50 ML 50 ML IV SCH ×2 (13:59→21:42)
[2019-07-08] MEDS: AZITHROMYCIN 500MG/NS 250 ML 250 ML IV SCH (14:21)
--- NOTE | 2019-07-08 15:59 | History and Physical ---
HISTORY OF PRESENT ILLNESS: A 59-year-old male with past medical history positive for COPD, cirrhosis, diabetes mellitus, who came to the emergency room yesterday complaining of shortness of breath, cough, and fever. He was found to have septic shock due to hypotension. He was found to have pneumonia. He was found to have COPD exacerbation, acute respiratory failure. The patient was transferred to intensive care unit on IV fluids, broad-spectrum IV antibiotics, and nebulization treatment. The patient is doing much, much better today. Blood pressure is more stable right now. REVIEW OF SYSTEMS: CARDIOVASCULAR: No chest pain or palpitation. RESPIRATORY: He has had shortness of breath. No wheezing. Cough yesterday, not now. GASTROINTESTINAL: No nausea or vomiting. No diarrhea. GENITOURINARY: No frequency. No dysuria. ALLERGIES: HE IS NOT ALLERGIC TO ANY MEDICATION. PAST MEDICAL HISTORY: Positive for cirrhosis, COPD, hypertension, diabetes. SOCIAL HISTORY: He used to smoke. He does not smoke anymore. He denies any recent alcohol intake. PHYSICAL EXAMINATION: VITAL SIGNS: Blood pressure is 117/75, temperature 37.4, heart rate 71 per minute, respiratory rate 19 per minute, oxygen saturation at 90%. HEART: Showed regular rhythm. Normal S1, S2 sound. LUNGS: Clear bilaterally. ABDOMEN: Soft. EXTREMITIES: Show no evidence of cyanosis or hematoma. CT of the chest show evidence of lower pneumonia. LABORATORY DATA: On the BMP; sodium 137, potassium 4.6, chloride 109, CO2 22, BUN 16, creatinine 1.08, glucose 311. On the CBC; white count 12.0, hemoglobin 10.2, hematocrit 33.8, platelet count of 163,000. AST 19, ALT 20, total bilirubin 0.2, alkaline phosphatase 46. Blood culture and urine culture have been sent. The report is pending. FINAL IMPRESSION: 1. Septic shock. 2. Acute respiratory failure secondary to chronic obstructive pulmonary disease exacerbation, pneumonia. 3. Lower pneumonia. 4. Cirrhosis of the liver. 5. Uncontrolled diabetes mellitus type 2 with diabetic nephropathy. 6. Leukocytosis. 7. Cirrhosis of the liver. PLAN OF TREATMENT: Continue current IV fluids. Continue cefepime 1 g IV once a day. Continue albuterol and Atrovent q.4 hours as needed for shortness of breath, normal saline at 125 mL an hour. We are going to monitor blood sugar before meals and at bedtime. His is going to bring the rest of the home medications. He apparently is taking lactulose 20 g once a day because of history of cirrhosis. We are going to do a followup CBC, going to recheck the ammonia level also because of history of cirrhosis. MD SG Anderson/FELIPE /[id number]
--- NOTE | 2019-07-08 18:00 | NUR ---
Dr. Ruddy Byrnes called and informed of consult. Dr. Montana informed of patient's elevated blood sugars. Orders given for insulin sliding scale. Pt reports taking lactulose at home, MD aware. Pt states will bring home medications. Pt reports gets short of breath upon exertion. Sputum culture collected. Pt does not appear to be in any s/s of distress at this time, will continue to monitor.
--- NOTE | 2019-07-08 20:24 | Consultation ---
DATE OF CONSULTATION: Pulmonary Critical Care Consultation CHIEF COMPLAINT: Fever, cough, dyspnea, superimposed on chronic lung disease. HISTORY OF PRESENT ILLNESS: The patient is a 59-year-old man. He has a history of COPD, interstitial lung disease, and prior silica exposure. He has some dyspnea on exertion at baseline. He does not use inhalers or oxygen at home. He came in complaining of worsening dyspnea over a week. He has less exercise tolerance. He notes some cough and fevers at home. He does not complain of chest pain or weight loss. PAST SURGICAL HISTORY: 1. Status post partial colectomy for diverticulitis. 2. Status post appendectomy. PAST MEDICAL HISTORY: 1. COPD. 2. Bronchiectasis. 3. Prior silica exposure. ALLERGIES: NO KNOWN DRUG ALLERGIES. SOCIAL HISTORY: The patient is a former smoker. 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 He is not an active drinker. FAMILY HISTORY: There is a history of hypertension and heart disease. REVIEW OF SYSTEMS: He has no headache. He has no neck pain. He is not complaining of any sore throat. He has no fevers. He is not having any chest pain. He denies any swollen glands. He does have increased dyspnea and increased cough. He noted some fevers at home. No abdominal pain. No nausea or vomiting. PHYSICAL EXAMINATION: VITAL SIGNS: The patient is afebrile. The blood pressure is 113/70 and the pulse is 88. Saturation is 91% on 4 L. HEENT: Shows no facial swelling or erythema. LYMPHATIC: Shows no submandibular, cervical, or supraclavicular adenopathy. CARDIAC: Reveals regular rate and rhythm with normal S1 and S2. There are no murmurs or rubs heard. LUNGS: Auscultation of lungs reveals crackles at the bases. There are decreased breath sounds anteriorly on the left side. ABDOMEN: Soft and nontender. There is no rebound or guarding. There is no leg edema. NEUROLOGICAL: Shows no focal abnormalities. LABORATORY DATA: White blood cell count is 12.8 and hemoglobin is 10.4. The platelet count is 170. The BUN to creatinine ratio is 16 to 1.08. The blood sugar is 250-300. Other electrolytes are within normal limits. Urinalysis is negative. RADIOGRAPHIC DATA: CT scan of the chest shows interstitial lung disease with honeycombing mostly at the bases. There is also a centrilobular emphysema that is more prominent in the upper lobes. There is left upper lobe consolidation suggestive of superimposed pneumonia. IMPRESSION: 1. Community-acquired pneumonia with sepsis, present on admission. 2. Chronic obstructive pulmonary disease with acute exacerbation. 3. 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 4. Bronchiectasis with acute exacerbation. PLAN: 1. Continue current antibiotics. 2. The patient has received IV fluids. 3. Continue oxygen for now. 4. Bronchodilators as needed. Chivo Byrnes MD [facility]/MODL /[id number]
[2019-07-09] VITALS (20 sets, daily range): BP systolic 98–138; BP diastolic 56–92
[2019-07-09] MEDS ORDERED: GUAIFENESIN/CODEINE 10 ML CUP PO PRN (03:15)
[2019-07-09] MEDS: SODIUM CHLORIDE 0.9% 1000ML 1,000 ML IV SCH ×2 (04:53→12:20)
[2019-07-09 05:14] LABS: BASOPHILS % 0.4 % (0.0-1.0); EOSINOPHILS # (AUTO) 0.3 (0.0-0.4); EOSINOPHILS % 3.2 % (0.0-6.0); HEMATOCRIT 34.1 % (38.2-49.6); HEMOGLOBIN 10.4 g/dL (14.0-18.0); LYMPHOCYTES # (AUTO) 1.5 (1.0-3.2); LYMPHOCYTES % 15.3 % (18.0-39.1); MEAN CORPUSCULAR HEMOGLOBIN 23.6 pg (28-32); MEAN CORPUSCULAR HGB CONC 30.5 g/dL (31-35); MEAN CORPUSCULAR VOLUME 77.5 fL (81-99); MONOCYTES # (AUTO) 0.5 (0.2-0.8); MONOCYTES % 5.3 % (4.4-11.3); NEUTROPHILS # (AUTO) 7.2 (2.1-6.9); NEUTROPHILS % 75.2 % (38.7-80.0); PLATELET COUNT 204 x10e3/uL (140-360); RED CELL DISTRIBUTION WIDTH 15.4 % (11.7-14.4)
[2019-07-09 05:28] LABS: ALANINE AMINOTRANSFERASE 19 IU/L (0-55); ALBUMIN 2.4 g/dL (3.5-5.0); ALBUMIN/GLOBULIN RATIO 0.9 (0.8-2.0); ALKALINE PHOSPHATASE 49 IU/L (40-150); BLOOD UREA NITROGEN 13 mg/dL (7-26); BUN/CREATININE RATIO 19 (6-25); CALCIUM 8.1 mg/dL (8.4-10.2); CARBON DIOXIDE 19 mmol/L (22-29); CHLORIDE 115 mmol/L (98-107); CREATININE, SERUM 0.67 mg/dL (0.72-1.25); EST GLOMERULAR FILTRATION RATE > 60 ML/MIN (60-); GLUCOSE 86 mg/dL (74-118); SODIUM 141 mmol/L (136-145)
[2019-07-09] MEDS: CEFEPIME 1GM/NS 0.9% 50 ML 50 ML IV SCH ×3 (05:58→22:00)
[2019-07-09] MEDS: INSULIN LISPRO 100 UNIT/1 ML 3ML VIAL SQ SCH ×4 (07:23→21:00)
[2019-07-09] MEDS: LACTULOSE SYRUP 20 GM/30 ML UDC PO SCH (08:03)
[2019-07-09] MEDS: ALBUTEROL/IPRATROPIUM 3 ML NEB NEB PRN ×2 (08:20→19:45)
[2019-07-09] MEDS: BENZONATATE 100 MG CAP PO SCH ×3 (09:11→20:18)
--- NOTE | 2019-07-09 12:03 | Progress Note ---
DATE: 07/09/2019 Internal Medicine Progress Note SUBJECTIVE: The patient is feeling better, but still with a lot of cough, some shortness of breath. PHYSICAL EXAMINATION: VITAL SIGNS: Blood pressure 131/64, temperature 97.1, heart rate 80 per minute, respiratory rate 24 per minute, oxygen saturation 98%. HEART: Show regular rhythm. LUNGS: Decreased breath sounds bilaterally. ABDOMEN: Soft. EXTREMITIES: Show no evidence of cyanosis, edema, or trauma. LABORATORY DATA: On the blood work, we have CBC, which showed white blood count 9.63, hemoglobin 10.4, hematocrit 34.1, platelet count 204,000. On the BMP; sodium 141, potassium 4.0, chloride 115, CO2 19, BUN 13, creatinine 0.67, glucose 86. On the AST 14, ALT 19, total bilirubin 0.3, alkaline phosphatase 49. FINAL IMPRESSION: 1. Sepsis. 2. Chronic obstructive pulmonary disease exacerbation. 3. Acute respiratory failure. 4. Hypoxemia secondary to chronic obstructive pulmonary disease exacerbation and pneumonia. 5. Lobar pneumonia. 6. Cirrhosis of the liver. 7. Anemia of chronic disease. 8. pneumonia. PLAN OF TREATMENT: Continue albuterol and Atrovent q.4 hours, cefepime q.8 hours, Zithromax 500 mg IV once a day, normal saline at 125 mL an hours, lactulose 20 g daily, guaifenesin with codeine q.4 hours as needed, Tessalon 100 mg q.8 hours as needed. Continue monitoring blood sugar before meals and at bedtime. Continue with insulin regimen. The patient will be transferred out of ICU once the oxygen is more stable. Oxygen saturation right now is in the late 80s and middle 90s. Mario Montana MD [facility]/MODL /[id number]
[2019-07-09] MEDS: AZITHROMYCIN 500MG/NS 250 ML 250 ML IV SCH (12:20)
[2019-07-09] MEDS ORDERED: ATORVASTATIN CA10 MG PO (13:11)
[2019-07-09] MEDS ORDERED: METFORMIN HCL500 MG PO (13:11)
[2019-07-09] MEDS ORDERED: EFFIENT10 MG PO (13:11)
[2019-07-09] MEDS ORDERED: KRISTALOSE20 GM (13:11)
[2019-07-09] MEDS ORDERED: BENZTROPINE MESY2 MG (13:11)
[2019-07-09] MEDS ORDERED: ATENOLOL50 MG (13:11)
[2019-07-09] MEDS ORDERED: OMEPRAZOLE40 MG (13:11)
[2019-07-09] MEDS ORDERED: ASPIRIN81 MG (13:11)
[2019-07-09] MEDS ORDERED: HALOPERIDOL10 MG (13:11)
[2019-07-09] MEDS ORDERED: PROAIR HFA INH8.5 GM (13:11)
[2019-07-09] MEDS ORDERED: LITHIUM CARBON150 MG (13:11)
[2019-07-09] MEDS ORDERED: LOSARTAN POTASS25 MG (13:11)
[2019-07-09] MEDS ORDERED: MELOXICAM7.5 MG PO (13:11)
[2019-07-09] MEDS ORDERED: TRAZODONE HCL150 MG (13:11)
[2019-07-09] MEDS ORDERED: LEVEMIR100 UNIT/1 (13:11)
[2019-07-09] MEDS ORDERED: NEXIUM40 MG (13:11)
[2019-07-09] MEDS: GUAIFENESIN/CODEINE 10 ML CUP PO PRN ×2 (16:01→20:48)
--- NOTE | 2019-07-09 17:47 | NUR ---
Dr. Montana gave orders for medical surgical floor with telemetry and pulse ox monitoring. MD notified of patient's persistent coughing. Orders given. Respiratory converted pt to high flow oxygen. Pt ambulated in hallway this afternoon, desaturation's noted upon ambulation. Will continue to monitor the patient.
--- NOTE | 2019-07-09 18:35 | Progress Note ---
DATE: 07/09/2019 SUBJECTIVE: He patient has some increased cough. The patient reports less dyspnea, although the oxygen is increased to 7 L. PHYSICAL EXAMINATION: VITAL SIGNS: The patient is afebrile. The blood pressure is 126/87, saturation is 91% on 7 L, and respiratory rate is 25. HEENT: Shows no facial swelling or erythema. CARDIAC: Reveals regular rate and rhythm with normal S1, S2. LUNGS: Auscultation of lungs reveals crackles in both lung bermeo. There is no wheezing. ABDOMEN: Soft, nontender. There is no rebound or guarding. EXTREMITIES: Show no leg edema or calf tenderness. There is no cyanosis or clubbing. SKIN: Shows no rashes. NEUROLOGICAL: Shows no focal abnormalities. LABORATORY DATA: White blood cell count is 9.6 and hemoglobin is 10.4. The platelet count is 204. The BUN to creatinine ratio is normal. The other electrolytes are within normal limits. IMPRESSION: 1. Community-acquired pneumonia with sepsis, present on admission. 2. Bronchiectasis with acute exacerbation. 3. 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 4. Chronic obstructive pulmonary disease. PLAN: 1. Continue antibiotics. 2. Stop IV fluids. 3. Solu-Medrol. 4. Wean oxygen as tolerated. Chivo Byrnes MD [facility]/MODL /[id number]
[2019-07-09] MEDS: METHYLPREDNISOLONE SOD SUCC 40 MG/ML VIAL 1ML IV SCH (20:18)
[2019-07-09] MEDS: LITHIUM CARBONATE ER 300 MG TAB PO SCH (21:24)
[2019-07-09] MEDS: TRAZODONE HCL 50 MG TAB PO SCH (21:24)
[2019-07-09] MEDS: HALOPERIDOL 5 MG TAB PO SCH (21:24)
[2019-07-10] VITALS (8 sets, daily range): BP systolic 119–145; BP diastolic 66–83
[2019-07-10] MEDS: GUAIFENESIN/CODEINE 10 ML CUP PO PRN ×3 (05:09→21:35)
[2019-07-10] MEDS: CEFEPIME 1GM/NS 0.9% 50 ML 50 ML IV SCH (05:09)
[2019-07-10 05:23] LABS: BASOPHILS % 0.4 % (0.0-1.0); EOSINOPHILS % 0.2 % (0.0-6.0); HEMATOCRIT 36.2 % (38.2-49.6); HEMOGLOBIN 11.1 g/dL (14.0-18.0); LYMPHOCYTES # (AUTO) 0.8 (1.0-3.2); LYMPHOCYTES % 14.7 % (18.0-39.1); MEAN CORPUSCULAR HEMOGLOBIN 23.5 pg (28-32); MEAN CORPUSCULAR HGB CONC 30.7 g/dL (31-35); MEAN CORPUSCULAR VOLUME 76.7 fL (81-99); MONOCYTES # (AUTO) 0.1 (0.2-0.8); MONOCYTES % 2.5 % (4.4-11.3); NEUTROPHILS # (AUTO) 4.3 (2.1-6.9); NEUTROPHILS % 81.6 % (38.7-80.0); PLATELET COUNT 235 x10e3/uL (140-360); RED BLOOD COUNT 4.72 x10e6/uL (4.3-5.7); RED CELL DISTRIBUTION WIDTH 15.5 % (11.7-14.4)
[2019-07-10 05:42] LABS: ALANINE AMINOTRANSFERASE 16 IU/L (0-55); ALBUMIN 2.7 g/dL (3.5-5.0); ALBUMIN/GLOBULIN RATIO 0.9 (0.8-2.0); ALKALINE PHOSPHATASE 58 IU/L (40-150); ANION GAP 12.5 mmol/L (8-16); BLOOD UREA NITROGEN 11 mg/dL (7-26); BUN/CREATININE RATIO 17 (6-25); CALCIUM 8.7 mg/dL (8.4-10.2); CARBON DIOXIDE 22 mmol/L (22-29); CHLORIDE 113 mmol/L (98-107); CREATININE, SERUM 0.64 mg/dL (0.72-1.25); EST GLOMERULAR FILTRATION RATE > 60 ML/MIN (60-); GLUCOSE 190 mg/dL (74-118); POTASSIUM 4.5 mmol/L (3.5-5.1); SODIUM 143 mmol/L (136-145)
[2019-07-10] MEDS: INSULIN LISPRO 100 UNIT/1 ML 3ML VIAL SQ SCH ×4 (07:38→21:17)
[2019-07-10] MEDS: METHYLPREDNISOLONE SOD SUCC 40 MG/ML VIAL 1ML IV SCH ×2 (08:30→21:37)
[2019-07-10] MEDS: BENZONATATE 100 MG CAP PO SCH ×3 (08:30→21:37)
[2019-07-10] MEDS: LACTULOSE SYRUP 20 GM/30 ML UDC PO SCH (08:30)
[2019-07-10] MEDS: AZITHROMYCIN 500MG/NS 250 ML 250 ML IV SCH (13:31)
--- NOTE | 2019-07-10 16:15 | Progress Note ---
DATE: 07/10/2019 SUBJECTIVE: The patient reports feeling somewhat better. He has no fever. He still is requiring 7 L of oxygen to maintain a saturation of 95%. PHYSICAL EXAMINATION: VITAL SIGNS: The patient is afebrile. The vital signs are stable. HEENT: Shows no facial swelling or erythema. CARDIAC: Reveals regular rate and rhythm with normal S1 and S2. LUNGS: Auscultation of lungs reveals clear breath sounds bilaterally. There is no wheezing. ABDOMEN: Soft and nontender. There is no rebound or guarding. EXTREMITIES: Shows no leg edema or calf tenderness. There is no cyanosis or clubbing. SKIN: Shows no rashes. NEUROLOGICAL: Shows no focal abnormalities. LABORATORY DATA: White blood cell count is 5.2 and the hemoglobin is 11.1. The platelet count is 235. BUN to creatinine ratio is normal. IMPRESSION: 1. Community-acquired pneumonia with sepsis, present on admission. 2. Bronchiectasis with acute exacerbation. 3. 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 4. Chronic obstructive pulmonary disease. PLAN: 1. Continue antibiotics. 2. Continue IV fluids. 3. Solu-Medrol. 4. Wean oxygen as tolerated. Chivo Byrnes MD [facility]/VANCEL /[id number]
[2019-07-10] MEDS: PIPER-TAZ 3.375 GM 50 ML IV SCH (17:40)
--- NOTE | 2019-07-10 18:30 | Progress Note ---
DATE: 07/10/2019 Internal Medicine Progress Note SUBJECTIVE: The patient is complaining of some cough, phlegm, and shortness of breath less than before. PHYSICAL EXAMINATION: VITAL SIGNS: Blood pressure 118/66, temperature 36.2, heart rate 61 per minute, respiratory rate 20 per minute, and oxygen saturation 96%. HEART: Showed regular rhythm. Normal S1 and S2 sound. LUNGS: Showed minimal wheezing on the left side. ABDOMEN: Soft. EXTREMITIES: Show no edema. LABORATORY DATA: On the BMP; sodium 143, potassium 4.5, chloride 113, CO2 22, BUN 11, creatinine 0.64, and glucose 190. On the CBC; white blood count 5.23, hemoglobin 11.1, hematocrit 36.2, and platelet count 235,000. AST 10, ALT 16, total bilirubin 0.4, and alkaline phosphatase 58. FINAL IMPRESSION: 1. Sepsis. 2. Acute respiratory failure with hypoxemia. 3. Chronic obstructive pulmonary disease exacerbation. 4. Uncontrolled diabetes mellitus type 2. 5. Lobar pneumonia, most likely gram-negative pneumonia. 6. Cirrhosis. 7. Chronic anemia. PLAN OF TREATMENT: We are going to continue with Zithromax 250 mg IV daily. We are going to start Zosyn 3.375 g IV q.8 hours. We are going to discontinue the cefepime due to the sputum culture report. Continue guaifenesin q.4 hours. Continue trazodone 150 mg at bedtime. Continue Solu-Medrol 30 mg IV twice a day. Continue monitoring blood sugar before meals and at bedtime, lactulose 20 g daily, Tessalon 100 mg 3 times a day, and lithium 600 mg at bedtime. Continue physical and occupational therapy. We are going to see if the patient can qualify to go to [facility]. MD SG Anderson/FELIPE /[id number]
[2019-07-10] MEDS: HALOPERIDOL 5 MG TAB PO SCH (21:37)
[2019-07-10] MEDS: TRAZODONE HCL 50 MG TAB PO SCH (21:37)
[2019-07-10] MEDS: LITHIUM CARBONATE ER 300 MG TAB PO SCH (21:37)
[2019-07-10] MEDS: ALBUTEROL/IPRATROPIUM 3 ML NEB NEB PRN (23:08)
--- NOTE | 2019-07-10 23:45 | NUR ---
Received patient from ICU, patient is on high flow. safety and fall precautions maintained. patient is currently stable will continue to monitor, patient was reported be irregular nsr/joe and same here.
[2019-07-11] VITALS (9 sets, daily range): BP systolic 99–138; BP diastolic 64–87
[2019-07-11] MEDS: PIPER-TAZ 3.375 GM 50 ML IV SCH ×6 (05:19→23:38)
[2019-07-11 05:29] LABS: BASOPHILS % 0.1 % (0.0-1.0); EOSINOPHILS % 0.1 % (0.0-6.0); HEMATOCRIT 35.8 % (38.2-49.6); LYMPHOCYTES # (AUTO) 0.8 (1.0-3.2); LYMPHOCYTES % 12.4 % (18.0-39.1); MEAN CORPUSCULAR HEMOGLOBIN 23.5 pg (28-32); MEAN CORPUSCULAR HGB CONC 30.7 g/dL (31-35); MEAN CORPUSCULAR VOLUME 76.5 fL (81-99); MONOCYTES # (AUTO) 0.2 (0.2-0.8); MONOCYTES % 3.6 % (4.4-11.3); NEUTROPHILS # (AUTO) 5.6 (2.1-6.9); NEUTROPHILS % 83.1 % (38.7-80.0); PLATELET COUNT 256 x10e3/uL (140-360); RED BLOOD COUNT 4.68 x10e6/uL (4.3-5.7); RED CELL DISTRIBUTION WIDTH 15.2 % (11.7-14.4)
[2019-07-11 05:54] LABS: ALANINE AMINOTRANSFERASE 15 IU/L (0-55); ALBUMIN 2.9 g/dL (3.5-5.0); ALBUMIN/GLOBULIN RATIO 0.9 (0.8-2.0); ALKALINE PHOSPHATASE 55 IU/L (40-150); BLOOD UREA NITROGEN 10 mg/dL (7-26); BUN/CREATININE RATIO 14 (6-25); CALCIUM 9.4 mg/dL (8.4-10.2); CARBON DIOXIDE 27 mmol/L (22-29); CHLORIDE 106 mmol/L (98-107); EST GLOMERULAR FILTRATION RATE > 60 ML/MIN (60-); GLUCOSE 197 mg/dL (74-118); SODIUM 141 mmol/L (136-145)
--- NOTE | 2019-07-11 06:55 | NUR ---
Dr. Montana was made aware of patients low hr when sleeping and ordered to consult Dr. Damon.
--- NOTE | 2019-07-11 07:00 | NUR ---
Handoff report from shift supervisor rn nurse, patient in bed supine awake, alert and oriented x3, denies pain, IV antibiotic infusing, no s/s of distress, bed in low position, breaks on patient on 6 liters high flow, verbalizing needs and using call light appropriately, belongings and call light within reach will continue to monitor.
--- NOTE | 2019-07-11 07:00 | NUR ---
Received patient from shift production supervisor nurse, patient in bed supine awake, alert and oriented, denies pain, patient has right upper thoracic drain, drainage appears sanguinous, patient also has dressing in place. Instructed to call when needing assistance, patient verbalized understanding. Addendum: 07/12/19 at 1018 by Vinita Mendes RN DISCARD NOTE DOCUMENTED ON INCORRECT PATIENT.
--- NOTE | 2019-07-11 07:00 | NUR ---
Dr. Edmond called and made aware of consult and states will see patient ( ).
--- NOTE | 2019-07-11 07:03 | NUR ---
patient endorsed to next shift for continuity of care and follow up of consult for bradycardia.
[2019-07-11] MEDS: ALBUTEROL/IPRATROPIUM 3 ML NEB NEB PRN ×2 (07:20→13:05)
[2019-07-11] MEDS: BENZONATATE 100 MG CAP PO SCH ×3 (08:30→20:35)
[2019-07-11] MEDS: METHYLPREDNISOLONE SOD SUCC 40 MG/ML VIAL 1ML IV SCH ×2 (08:30→20:35)
[2019-07-11] MEDS: INSULIN LISPRO 100 UNIT/1 ML 3ML VIAL SQ SCH ×4 (08:37→20:36)
--- NOTE | 2019-07-11 09:07 | Diagnostic Imaging Report ---
EXAMINATION: PA and lateral views of the chest. COMPARISON: July 07 2019 CLINICAL HISTORY: Septic shock DISCUSSION: Lines/tubes: None. Lungs: Stable fibrotic change throughout the lungs. Decreased consolidation in the left upper lung. Pleura: No pleural effusion or pneumothorax. Heart and mediastinum: The cardiomediastinal silhouette is normal. Bones and soft tissues: No acute bony abnormalities. IMPRESSION: Stable fibrotic change throughout the lungs. Decreased consolidation in the left upper lung. Signed by: Dr. Kirby Matt M.D. on 07/11/2019 9:04 AM
[2019-07-11] MEDS: LACTULOSE SYRUP 20 GM/30 ML UDC PO SCH (12:03)
--- NOTE | 2019-07-11 13:28 | Progress Note ---
DATE: 07/11/2019 SUBJECTIVE: The patient is feeling better, but still requiring a large amount of oxygen. The patient does have some cough. The patient had no chest pain. OBJECTIVE: VITAL SIGNS: The patient is afebrile. The vital signs are stable. HEENT: Shows no facial swelling or erythema. CARDIAC: Reveals regular rate and rhythm with normal S1, S2. LUNGS: Auscultation of lungs shows clear breath sounds bilaterally. There is no wheezing. ABDOMEN: Soft and nontender. There is no rebound or guarding. EXTREMITIES: Show no leg edema or calf tenderness. There is no cyanosis or clubbing. SKIN: Shows no rashes. NEUROLOGICAL: Shows no focal abnormalities. ASSESSMENT: 1. Community-acquired pneumonia with sepsis, present on admission. 2. Bronchiectasis with acute exacerbation. 3. Interstitial lung disease related to silicosis. 4. Chronic obstructive pulmonary disease. PLAN: 1. Complete antibiotics. 2. Wean oxygen. 3. Solu-Medrol. Chivo Byrnes MD [facility]/MODL /[id number]
[2019-07-11] MEDS: AZITHROMYCIN 500MG/NS 250 ML 250 ML IV SCH (14:29)
--- NOTE | 2019-07-11 15:18 | Progress Note ---
DATE: 07/11/2019 Internal Medicine Progress Note SUBJECTIVE: The patient is doing well. No significant complaint. OBJECTIVE: VITAL SIGNS: Blood pressure 99/64, temperature 98.6, heart rate 80 per minute, respiratory rate 16 per minute, oxygen saturation is 100%. HEART: Showed regular rhythm. Normal S1, S2 sound. LUNGS: Showed decreased breath sounds bilaterally. LABORATORY DATA: On the BMP; sodium 141, potassium 5.0, chloride 106 CO2 27, BUN 10, creatinine 0.70, glucose 197. On the CBC; white count 6.75, hemoglobin 11.0, hematocrit 35.8, platelet count 156,000. AST 6, ALT 15, total bilirubin 0.4, alkaline phosphatase 55. FINAL IMPRESSION: 1. Acute respiratory failure secondary to chronic obstructive pulmonary disease exacerbation secondary to pneumonia. 2. Sepsis. 3. Chronic obstructive pulmonary disease exacerbation. 4. Lobar pneumonia, possible gram-negative bacteria. 5. Cirrhosis. 6. Anemia of chronic disease. 7. Uncontrolled diabetes mellitus type 2. PLAN OF TREATMENT: Continue albuterol and Atrovent q.4 hours, Zithromax 250 mg IV q.24 hours, Zosyn q.6 hours, Tylenol 325 mg q.4 hours as needed, Tessalon 100 mg three times a day, lithium carbonate 600 mg at bedtime, guaifenesin with codeine 5 mL q.4 hours as needed. Continue trazodone 150 mg at bedtime. Continue monitoring blood sugar before meals and at bedtime, methylprednisolone 30 mg IV q.12 hours, lactulose 20 g daily, Haldol 10 mg at bedtime. Case has been discussed with the patient for 35 minutes. MD SG Anderson/VANCEL /[id number]
--- NOTE | 2019-07-11 17:22 | NUR ---
Dr. Antonio Byrnes returned call made aware of cardiac consult.
[2019-07-11] MEDS: TRAZODONE HCL 50 MG TAB PO SCH (20:35)
[2019-07-11] MEDS: LITHIUM CARBONATE ER 300 MG TAB PO SCH (20:35)
[2019-07-11] MEDS: HALOPERIDOL 5 MG TAB PO SCH (20:35)
--- NOTE | 2019-07-11 22:41 | Consultation ---
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 HISTORY OF PRESENT ILLNESS: This is a 59-year-old gentleman, who was known with very severe advanced interstitial lung disease secondary to silicosis as per the patient. The patient does have shortness of breath on minimal activity. He has had feeling very weak and no energy. He cannot breathe. He came to this institution, started on steroids, antibiotics including azithromycin and Zosyn. He continued on his home medication including Haldol, lithium carbonate, and trazodone. The patient at home on atenolol and Lipitor in addition to losartan and Effient. Cardiac sampson, the patient is known with longstanding history of chronic lung disease secondary to the silicosis as per the patient. He is crippled for that. He does have easy fatigability and shortness of breath on minimal activity. Surprisingly, he does not use any oxygen at home. He does use inhaler including ProAir. The patient came to this institution, as I mentioned on the July 07, 2019. He was unable to brace. He was fighting for his breast. With steroids and antibiotics, he is feeling better. He is currently in ICU. On admission, the patient was tachycardic with right ventricular hypertrophy. As per note, he was having septic shock with hypotension and chills. He was treated with pneumonia and acute COPD exacerbation with acute respiratory failure. The patient improved with this treatment and he moved to the intermediate care unit. 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 I am not clear, if the patient will continue on his atenolol 25 mg or not. Regardless, when they called me, I told them stop all beta shaneka and he is not currently on his MAR. I had visit with the patient, who said his breathing is easier with the oxygen. He is by far much better. He is still having shortness of breath, if he does any minimal activity. He denied having any angina. He does have some cough, but it is by far much less. No more fever. Cardiac-sampson, the patient told me that he did have coronary artery disease and he had PCI done before heart attack by Dr. Byrnes. REVIEW OF SYSTEMS: GENERAL: No fever, no chills. HEENT: Congestion. PULMONARY: As per history and physical. CARDIAC: As per history and physical. GI: No hematemesis. No melena. : No hematuria. No dysuria. MUSCULOSKELETAL: Aches and pain. GENERAL: Weakness, debility. ENDOCRINE: The patient is diabetic of many years duration. PSYCHIATRIC: The patient on lithium and other medication for psychosis. HOME MEDICATIONS: Include: 1. ProAir. 2. Aspirin. 3. Effient 10 mg a day. 4. Atenolol 25 mg a day. 5. Losartan 25 mg a day. 6. Lipitor 10 mg a day. 7. Nexium 1 tablet a day. 8. Levemir. 9. Metformin. 10. [place] carbonate. 11. Trazodone. 12. Following admission, the patient is on azithromycin, Zosyn, Haldol, Humalog, lactulose, lithium carbonate, methylprednisone, and trazodone. ALLERGIES: NONE. PAST MEDICAL HISTORY: 1. Advanced lung disease secondary to his silicosis. 2. Hypertension. 3. Diabetes mellitus. 4. Liver cirrhosis. 5. Coronary artery disease status post prior PCI many years ago. 6. Status post partial colectomy for diverticulosis. 7. Status post appendectomy. FAMILY HISTORY: Hypertension and heart disease in the family. PHYSICAL EXAMINATION: VITAL SIGNS: Height of 5 feet 10 inches, weight of 164 pounds, blood pressure 120/70, heart rate of 60, respiratory rate of 18. HEENT: Pupils are reactive. NECK: No elevation of jugular venous pulsation. CHEST: Decreased lung expansion. HEART: Increased intensity of 2nd heart sound, right ventricular heave. ABDOMEN: Soft. EXTREMITIES: There is clubbing and cyanosis noted. No edema. NEUROLOGIC: Awake, alert, and oriented. No motor deficit. LABORATORY DATA: Most recent electrolytes were within normal. White blood cell count of 6.7, hemoglobin of 11, hematocrit 35%. CT chest done showed pneumonia, left upper lobe and medial hilar and mediastinal lymphadenopathy. Recommend repeat CT scan for malignancy to rule out malignancy in the near future. Chest x-ray fibrotic changes through both lungs. IMPRESSION AND PLAN: 1. Respiratory distress pneumonia by CT scan, treated as pneumonia, slowly improving. 2. Chronic lung disease secondary to silicosis exposure. 3. Hypochromic hypoxemia. 4. Clubbing, cyanosis, and right ventricular hypertrophy consistent with advanced lung disease. 5. Coronary artery disease status post PCI. 6. History of liver cirrhosis as per report. 7. Diabetes mellitus with complication. 8. Possible psychosis. Cardiac sampson my recommendation is to avoid all AV grisel blocking agents to check TSH. We need to check EKG now. Since heart rate is in the 60s on admission, his heart rate was faster. An echocardiogram will be helpful, but since the patient is telling me his doctor is Dr. Antonio Byrnes, I am going to change the consult to Dr. Antonio Byrnes. We will take care of the gentleman until seen by Dr. Byrnes hopefully tomorrow morning. MD JACKSON NelsonJ/MODL /[id number]
[2019-07-12] VITALS (7 sets, daily range): BP systolic 90–134; BP diastolic 55–87
[2019-07-12] MEDS: PIPER-TAZ 3.375 GM 50 ML IV SCH ×4 (05:14→23:57)
[2019-07-12 06:35] LABS: BASOPHILS % 0.2 % (0.0-1.0); EOSINOPHILS % 0.4 % (0.0-6.0); HEMATOCRIT 40.2 % (38.2-49.6); HEMOGLOBIN 12.1 g/dL (14.0-18.0); LYMPHOCYTES # (AUTO) 1.2 (1.0-3.2); MEAN CORPUSCULAR HEMOGLOBIN 23.4 pg (28-32); MEAN CORPUSCULAR HGB CONC 30.1 g/dL (31-35); MEAN CORPUSCULAR VOLUME 77.6 fL (81-99); MONOCYTES # (AUTO) 0.4 (0.2-0.8); MONOCYTES % 3.8 % (4.4-11.3); NEUTROPHILS # (AUTO) 7.5 (2.1-6.9); NEUTROPHILS % 81.7 % (38.7-80.0); PLATELET COUNT 318 x10e3/uL (140-360); RED BLOOD COUNT 5.18 x10e6/uL (4.3-5.7); RED CELL DISTRIBUTION WIDTH 15.1 % (11.7-14.4)
--- NOTE | 2019-07-12 06:55 | NUR ---
Handoff report from company accountant nurse patient in bed sleeping, per night patient has already been up to bathroom.
[2019-07-12 07:08] LABS: ANION GAP 13.7 mmol/L (8-16); CALCIUM 9.8 mg/dL (8.4-10.2); CARBON DIOXIDE 28 mmol/L (22-29); CHLORIDE 104 mmol/L (98-107); CREATININE, SERUM 0.72 mg/dL (0.72-1.25); EST GLOMERULAR FILTRATION RATE > 60 ML/MIN (60-); GLUCOSE 153 mg/dL (74-118); POTASSIUM 4.7 mmol/L (3.5-5.1); SODIUM 141 mmol/L (136-145)
[2019-07-12 07:31] LABS: BLOOD UREA NITROGEN 14 mg/dL (7-26); BUN/CREATININE RATIO 18 (6-25)
[2019-07-12] MEDS: INSULIN LISPRO 100 UNIT/1 ML 3ML VIAL SQ SCH ×4 (07:49→21:12)
[2019-07-12] MEDS: LACTULOSE SYRUP 20 GM/30 ML UDC PO SCH (08:27)
[2019-07-12] MEDS: BENZONATATE 100 MG CAP PO SCH ×3 (08:27→21:10)
[2019-07-12] MEDS: METHYLPREDNISOLONE SOD SUCC 40 MG/ML VIAL 1ML IV SCH ×2 (08:27→21:10)
--- NOTE | 2019-07-12 12:52 | Progress Note ---
DATE: 07/12/2019 Internal Medicine Progress Note SUBJECTIVE: The patient is doing much better today. OBJECTIVE: VITAL SIGNS: Blood pressure 97/63, temperature 98.5, heart rate 82 per minute, respiratory rate 23 per minute, oxygen saturation 94%. HEART: Regular rhythm. Normal S1, S2 sound. LUNGS: Clear bilaterally. ABDOMEN: Soft. LABORATORY DATA: On the BMP; sodium 141, potassium 4.7, chloride 104, CO2 of 28, BUN 14, creatinine 0.72, glucose 153. On the CBC, white count 9.13, hemoglobin 12.1, hematocrit 40.2, and platelet count 318,000. AST 6, ALT 15, total bilirubin 0.4, alkaline phosphatase 55. IMPRESSION: 1. Sepsis. 2. Acute respiratory failure with hypoxemia, resolved right now, he is on nasal cannula. 3. Chronic obstructive pulmonary disease exacerbation. 4. Uncontrolled diabetes mellitus type 2. 5. Cirrhosis of the liver. 6. Anemia of chronic disease. 7. Gram-negative, most likely lobar pneumonia. PLAN OF TREATMENT: Continue albuterol and Atrovent q.4 hours, continue Zithromax, continue Zosyn, continue Tylenol 325 mg q.4 hours as needed, Tessalon 100 mg three times a day, lithium carbonate 600 mg at bedtime, D50 IV push as needed for hypoglycemia, guaifenesin with codeine 5 mL q.4 hours as needed for cough, trazodone 150 mg at bedtime. Continue monitoring blood sugar before meals and at bedtime, continue Solu-Medrol 30 mg IV twice a day, lactulose 20 g daily, Haloperidol 10 mg daily. The patient underwent an echocardiogram now. I do not think a hospital referral has been requested, but still waiting on the insurance [employer] . MD SG Anderson/FELIPE /[id number]
[2019-07-12] MEDS: AZITHROMYCIN 500MG/NS 250 ML 250 ML IV SCH (13:36)
--- NOTE | 2019-07-12 13:53 | Progress Note ---
DATE: 07/12/2019 SUBJECTIVE: The patient feels somewhat better. He has less dyspnea. He is still requiring oxygen with nasal cannula. OBJECTIVE: VITAL SIGNS: The patient is afebrile. The vital signs are stable. The saturation was 97% on 4 L. HEENT: Shows no facial swelling or erythema. CARDIAC: Reveals regular rate and rhythm with normal S1, S2. LUNGS: Auscultation of lungs reveals clear breath sounds bilaterally. There is no wheezing. ABDOMEN: Soft and nontender. There is no rebound or guarding. EXTREMITIES: Show no leg edema or calf tenderness. There is no cyanosis or clubbing. SKIN: Shows no rashes. NEUROLOGICAL: Shows no focal abnormalities. ASSESSMENT: 1. Community-acquired pneumonia. 2. Interstitial lung disease possibly related to silicosis. 3. Bronchiectasis with acute exacerbation. PLAN: 1. Continue current antibiotics. 2. Wean oxygen. 3. Solu-Medrol. 4. Possible discharge home tomorrow. Cihvo Byrnes MD [facility] /[id number]
[2019-07-12] MEDS: ALBUTEROL/IPRATROPIUM 3 ML NEB NEB PRN (15:29)
--- NOTE | 2019-07-12 16:58 | Consultation ---
DATE OF CONSULTATION: 07/12/2019 Cardiology Consultation CHIEF COMPLAINT: The patient is a 59-year-old with shortness of breath. HISTORY OF PRESENT ILLNESS: The patient is a 59-year-old male with known interstitial lung disease on home oxygen, who presented to the emergency room with worsening shortness of breath. The patient was started on IV antibiotics for possible superimposed pneumonia. Cardiology consultation was called for sinus bradycardia. The patient has no report of chest pain. PAST MEDICAL HISTORY: Significant for, 1. Longstanding interstitial lung disease. 2. Hypertension. 3. Diabetes mellitus. 4. Cirrhosis. 5. Coronary artery disease with previous stent. 6. Bipolar disorder. MEDICATIONS AT HOME: Include ProAir, aspirin, Effient, atenolol, losartan, Lipitor, Nexium, metformin. SOCIAL HISTORY: The patient has been a smoker in the past. The patient does not drink. FAMILY HISTORY: There is a known family history of hypertension and heart disease. PHYSICAL EXAMINATION: GENERAL: The patient is a thin male, in no obvious distress. VITAL SIGNS: Include a temperature of 97.8, blood pressure 130/80, pulse is 64, respiratory rate 18. HEAD, EARS, EYES, NOSE, AND THROAT: The patient's cranium was normal sinus. Normocephalic and atraumatic. Extraocular muscles were intact. Sclerae were anicteric. Pupils were equal, round, and reactive to light. There was no pallor or cyanosis of the oral mucosa. There was no erythema or edema of the throat. NECK: Supple. No jugular venous distention. No carotid bruits. CHEST: Demonstrated decreased breath sounds and rhonchi bilaterally. CARDIAC: Demonstrated normal S1 and S2 with a short 2/6 systolic murmur. ABDOMEN: Demonstrated good bowel sounds. No tenderness. EXTREMITIES: No clubbing, no cyanosis, and no edema. NEUROLOGIC: The patient was alert and oriented x3. Cranial nerves II through XII were intact. Motor strength was +5/+5 in all limbs. DIAGNOSTIC DATA: The patient's EKG demonstrated sinus bradycardia. IMPRESSION: The main issue seems to be chronic interstitial lung disease with possible superimposed pneumonia. The patient does not have any chest pain or evidence of active cardiac ischemia. RECOMMENDATIONS: 1. The patient's atenolol will need to be discontinued due to the sinus bradycardia. 2. An echocardiogram is ordered to assess the patient's left ventricular size and function. MD SIL Hoang/FELIPE /[id number] cc: Mario Montana MD
[2019-07-12] MEDS: HALOPERIDOL 5 MG TAB PO SCH (21:10)
[2019-07-12] MEDS: GUAIFENESIN/CODEINE 10 ML CUP PO PRN (21:10)
[2019-07-12] MEDS: LITHIUM CARBONATE ER 300 MG TAB PO SCH (21:10)
[2019-07-12] MEDS: TRAZODONE HCL 50 MG TAB PO SCH (21:10)
[2019-07-13] VITALS (8 sets, daily range): BP systolic 99–130; BP diastolic 70–88
[2019-07-13] MEDS: PIPER-TAZ 3.375 GM 50 ML IV SCH ×4 (06:28→23:30)
[2019-07-13] MEDS: INSULIN LISPRO 100 UNIT/1 ML 3ML VIAL SQ SCH ×4 (08:00→20:25)
[2019-07-13] MEDS: METHYLPREDNISOLONE SOD SUCC 40 MG/ML VIAL 1ML IV SCH (08:44)
[2019-07-13] MEDS: LACTULOSE SYRUP 20 GM/30 ML UDC PO SCH (08:44)
[2019-07-13] MEDS: BENZONATATE 100 MG CAP PO SCH ×3 (08:44→20:22)
[2019-07-13] MEDS ORDERED: PREDNISONE 10 MG TAB PO SCH (10:00)
--- NOTE | 2019-07-13 11:34 | NUR ---
SPOKE WITH PT TODAY REGARDING DC PLANS PT WANTS TO GO HOME WITH HOME 02 IF NEEDED PT AMBULATING 400 FEET WITH P.T. HOME 02 EVAL ORDERED WILL ARRANGE HOME 02 IF PT QUALIFIES
--- NOTE | 2019-07-13 11:37 | Progress Note ---
DATE: 07/13/2019 Internal Medicine Progress SUBJECTIVE: The patient is doing better. PHYSICAL EXAMINATION: VITAL SIGNS: Blood pressure is 97/63, temperature 98.5, heart rate 82 per minute, respiratory rate 23 per minute, and oxygen saturation 94%. HEART: Showed regular rhythm. Normal S1 and S2 sound. LUNGS: Showed decreased breath sounds bilaterally. ABDOMEN: Showed no evidence of distention. EXTREMITIES: Show no edema. LABORATORY DATA: On the BMP; sodium 141, potassium 4.7, chloride 104, CO2 28, BUN 14, creatinine 0.12, and glucose 153. On the CBC; white blood count 9.13, hemoglobin 12.1, hematocrit 40.2, and platelet count 318,000. AST 6, ALT 15, total bilirubin 0.4, and alkaline phosphatase 55. FINAL IMPRESSION: 1. Acute hypoxic respiratory failure secondary to chronic obstructive pulmonary disease exacerbation. 2. Chronic obstructive pulmonary disease exacerbation. 3. Negative bacterial pneumonia. 4. Cirrhosis of the liver. 5. Uncontrolled diabetes mellitus type 2. 6. Bipolar disorder. PLAN OF TREATMENT: Continue albuterol/Atrovent q.4 hours. Continue Zithromax 250 mg IV daily and Zosyn 3.375 g IV q.6 hours. Continue Tylenol 325 mg q.4 hours as needed, Tessalon 100 mg 3 times a day as needed for cough, lithium carbonate 600 mg at bedtime, guaifenesin with codeine 5 mL q.4 hours as needed for cough, and trazodone 150 mg at bedtime. Continue monitoring blood sugar before meals and at bedtime. We are going to switch the methylprednisolone to prednisone 20 mg daily. Continue lactulose 20 g daily and Haldol 10 mg at bedtime. Also, atenolol has been discontinued due to the bradycardia. Echocardiogram has been ordered by Dr. Byrnes. MD SG Anderson/FELIPE /[id number]
--- NOTE | 2019-07-13 12:53 | NUR ---
Nutrition Screen Note RD Recommendation for Physician: - Recommend adding 2000 ADA to current diet 2/2 DM - Insulin and BG management per MD Plan of Care: RD following, monitoring for tolerance and adequacy Nutrition reason for involvement: LOS Primary Diagnose(s): septic shock, acute respiratory failure 2/2 COPD, PNA, cirrhosis, uncontrolled DM with neuropathy PMH: cirrhosis, DM, HTN, COPD Ht: 70 in Wt: 164 lb BMI: 23.5 kg/m2 IBW: [address] Assessment: (07/13/19) 59 YOM admitted for septic shock, acute respiratory failure, PNA, and cirrhosis. Pt seen today for LOS. 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 Pt denies N/V/C/D or difficulties chewing or swallowing. Pt reports wt loss over the past year, reports UBW of 180# a yr ago- minor wt loss noted. Pt with no questions or concerns at time of visit. Pt getting ready for testing/procedure at time of visit- will address diet education needs at f/u. Chart reviewed. Labs and meds reviewed, BG trend elevated- no DM diet restriction currently. Will continue to monitor. Current Diet: Cardiac Malnutrition Evaluation (07/13/19) The patient does not meet criteria for a specified degree of malnutrition at this time. Will re-evaluate at follow-up as appropriate. Energy intake: Good po intake Weight loss: does not meet criteria, minor wt loss- 9% in 1 yr Fat loss: mild, eyes slightly hollow Muscle loss: none Supporting Evidence: Fluid accumulation: none observed Functional Status: not assessed Diet Education Needs Assessment: Diet education indicated, pt not appropriate at this time- being prepped for testing Diet tolerance: tolerating Nutrition Care Level: Low Signed: Kalee Qiu RD, LD, [facility]
--- NOTE | 2019-07-13 17:39 | Progress Note ---
DATE: 07/13/2019 SUBJECTIVE: The patient is still requiring 3 L of oxygen. He has minimal cough. His beta blockers were held because of bradycardia. PHYSICAL EXAMINATION: VITAL SIGNS: Stable. HEENT: Shows no facial swelling or erythema. CARDIAC: Reveals a regular rate and rhythm with normal S1 and S2. LUNGS: Auscultation of lungs reveals clear breath sounds bilaterally. There is no wheezing. ABDOMEN: Soft and nontender. There is no rebound or guarding. EXTREMITIES: Shows no leg edema or calf tenderness. There is no cyanosis or clubbing. SKIN: Shows no rashes. NEUROLOGICAL: Shows no focal abnormalities. IMPRESSION: 1. Community-acquired pneumonia. 2. 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 3. Bronchiectasis with acute exacerbation. 4. Bradycardia. PLAN: 1. Wean oxygen. 2. Complete antibiotics. 3. Possible discharge home tomorrow. MD WHITNEY Silverio/FELIPE /[id number]
[2019-07-13] MEDS: HALOPERIDOL 5 MG TAB PO SCH (20:22)
[2019-07-13] MEDS: LITHIUM CARBONATE ER 300 MG TAB PO SCH (20:22)
[2019-07-13] MEDS: TRAZODONE HCL 50 MG TAB PO SCH (20:22)
[2019-07-13] MEDS: GUAIFENESIN/CODEINE 10 ML CUP PO PRN (20:26)
[2019-07-14 00:02] VITALS: BP 100/59
[2019-07-14 04:35] VITALS: BP 102/62
[2019-07-14] MEDS: PIPER-TAZ 3.375 GM 50 ML IV SCH (05:30)
[2019-07-14] MEDS: INSULIN LISPRO 100 UNIT/1 ML 3ML VIAL SQ SCH ×2 (06:57→11:30)
[2019-07-14 07:35] VITALS: BP 98/79
[2019-07-14 07:38] LABS: HEMATOCRIT 43.2 % (38.2-49.6); HEMOGLOBIN 13.1 g/dL (14.0-18.0); MEAN CORPUSCULAR HEMOGLOBIN 23.6 pg (28-32); RED BLOOD COUNT 5.54 x10e6/uL (4.3-5.7)
[2019-07-14 07:39] LABS: BASOPHILS % 0.5 % (0.0-1.0); EOSINOPHILS % 4.7 % (0.0-6.0); MEAN CORPUSCULAR HGB CONC 30.3 g/dL (31-35); MONOCYTES % 6.7 % (4.4-11.3); NEUTROPHILS % 65.4 % (38.7-80.0); PLATELET COUNT 318 x10e3/uL (140-360)
[2019-07-14 07:40] LABS: LYMPHOCYTES % 20.7 % (18.0-39.1)
[2019-07-14] MEDS: LACTULOSE SYRUP 20 GM/30 ML UDC PO SCH (08:01)
[2019-07-14] MEDS: BENZONATATE 100 MG CAP PO SCH (08:01)
[2019-07-14 08:19] LABS: CHLORIDE 102 mmol/L (98-107); POTASSIUM 4.8 mmol/L (3.5-5.1); SODIUM 137 mmol/L (136-145)
[2019-07-14 08:20] LABS: ANION GAP 12.8 mmol/L (8-16); BLOOD UREA NITROGEN 17 mg/dL (7-26); BUN/CREATININE RATIO 17 (6-25); CALCIUM 9.7 mg/dL (8.4-10.2); CARBON DIOXIDE 27 mmol/L (22-29); CREATININE, SERUM 1.01 mg/dL (0.72-1.25); EST GLOMERULAR FILTRATION RATE > 60 ML/MIN (60-); GLUCOSE 117 mg/dL (74-118)
[2019-07-14] MEDS ORDERED: PREDNISONE 10 MG TAB PO SCH (09:00)
[2019-07-14 09:15] LABS: BASOPHILS # (AUTO) 0.1 (0.0-0.1); EOSINOPHILS # (AUTO) 0.5 (0.0-0.4); LYMPHOCYTES # (AUTO) 2.3 (1.0-3.2); MONOCYTES # (AUTO) 0.7 (0.2-0.8); NEUTROPHILS # (AUTO) 7.1 (2.1-6.9)
[2019-07-14] MEDS ORDERED: AUGMENTIN 875-1 EACH PO (09:16)
[2019-07-14] MEDS ORDERED: PREDNISONE10 MG PO (09:16)
[2019-07-14] MEDS ORDERED: SPIRIVA18 MCG INH (09:17)
[2019-07-14 12:10] VITALS: BP 126/83
--- NOTE | 2019-07-15 03:21 | Discharge Summary ---
ADDENDUM: Also at home, he is taking aspirin 81 mg daily, atenolol has been discontinued because of bradycardia. Continue Lipitor 10 mg daily, esomeprazole 40 mg daily, Haldol 10 mg daily. Levemir, he is taking at home, but he does not remember the dose. He is taking lactulose 20 g three times daily, lithium carbonate 150 mg daily, losartan 25 mg daily, Meloxicam 7.5 mg daily, metformin 500 mg twice a day, Effient 10 mg daily, and trazodone 150 mg at bedtime. MD SG Anderson/FELIPE /[id number]
--- NOTE | 2019-07-15 03:46 | Discharge Summary ---
The patient is a 59-year-old male with past medical history positive for COPD, cirrhosis of liver, diabetes mellitus with bipolar disorder, came with shortness of breath. He was found to have acute hypoxic respiratory failure secondary to chronic obstructive pulmonary disease exacerbation secondary to pneumonia. The patient was started on broad-spectrum course of IV antibiotics, which include Zithromax and Zosyn. The patient is doing a lot better. Fever is gone. Blood culture came back negative. Screening for histoplasma was done. Influenza A and B negative. Urine for Legionella antigen was negative. Group A Streptococcus screen was negative. Chest CT showed evidence of pulmonary fibrosis, left upper lobe consolidation consistent with pneumonia. Ileal and mediastinal lymphadenopathy could be reactive in the acute infectious setting, severe interstitial lung disease distribution superimposed and also centrilobar emphysema was found. PHYSICAL EXAMINATION: HEART: Showed regular rhythm. S1, S2 sound. LUNGS: Clear bilaterally. ABDOMEN: Soft. VITAL SIGNS: Temperature is 98.3, heart rate is 87 per minute, respiratory rate 17 per minute, oxygen saturation 100%, but he needs oxygen by nasal cannula. His oxygen saturation dropping low 90% on room air. The patient has been seen by Cardiology and Pulmonology also. The patient is going to be discharged home today. IMPRESSION: 1. Acute hypoxic respiratory failure secondary to chronic obstructive pulmonary disease exacerbation with pneumonia. 2. Chronic obstructive pulmonary disease exacerbation secondary to pneumonia. 3. Pneumonia. 4. Negative pneumonia with E coli. 5. Cirrhosis of liver. 6. Uncontrolled diabetes mellitus, type 2. 7. Pulmonary fibrosis. PLAN OF TREATMENT: We are going to discharge him on Augmentin 875 mg twice a day based on sensitivity and sputum culture. Continue with Proventil metered-dose inhaler two puffs every 4 hours as needed for shortness of breath, Spiriva 1 inhalation daily, prednisone 10 mg daily for 5 days, and then discontinue. He is going to continue lactulose 20 g daily, continue with trazodone 150 mg at bedtime, and he also will continue Levemir, and he was taking at home. Follow with his primary care physician. MD SG Anderson/FELIPE /[id number]
--- NOTE | 2019-07-15 03:50 | Discharge Summary ---
Also the patient has been seen by because of history of coronary artery disease with stents. The patient is to continue antiplatelet agents also. He has cirrhosis of the liver also so MD SG Anderson/FELIPE /[id number]
== END 2019-07-14 13:44 | disposition home or self-care (01) | DRG 871 ==
LOC: ER 14:01 → ERHOLD 16:43 → ICU 18:38 → IMCU 07-10 23:02
PROVIDERS: ADMIT Internal Medicine; ATTEND Internal Medicine
DX: A41.9 Sepsis, unspecified organism (principal); J15.5 Pneumonia due to Escherichia coli; R65.21 Severe sepsis with septic shock; J96.01 Acute respiratory failure with hypoxia; J18.1 Lobar pneumonia, unspecified organism; J44.1 Chronic obstructive pulmonary disease with (acute) exacerbation; J44.0 Chronic obstructive pulmonary disease with (acute) lower respiratory infection; K74.60 Unspecified cirrhosis of liver; Z87.891 Personal history of nicotine dependence; Z83.3 Family history of diabetes mellitus; Z82.49 Family history of ischemic heart disease and other diseases of the circulatory system; I10 Essential (primary) hypertension; E11.21 Type 2 diabetes mellitus with diabetic nephropathy; J62.8 Pneumoconiosis due to other dust containing silica; I25.10 Atherosclerotic heart disease of native coronary artery without angina pectoris; K63.89 Other specified diseases of intestine; F29 Unspecified psychosis not due to a substance or known physiological condition; I49.8 Other specified cardiac arrhythmias; F31.9 Bipolar disorder, unspecified; Z79.82 Long term (current) use of aspirin; Z95.5 Presence of coronary angioplasty implant and graft; D63.8 Anemia in other chronic diseases classified elsewhere; Z79.4 Long term (current) use of insulin; T44.7X5A Adverse effect of beta-adrenoreceptor antagonists, initial encounter; E11.65 Type 2 diabetes mellitus with hyperglycemia
CPT/HCPCS: 36415; 36600; 71045; 71046; 71260; 80048; 80053; 80178; 81001; 82140; 82550; 82553; 82805; 82948; 83518; 83605; 83880; 84443; 84484; 85025; 87040; 87070; 87186; 87205; 87385; 87400; 87449; 93005; 93306; 94640; 96372; 99251; 99285; J0456; J0692; J0696; J1885; J2543; J2920; J2930; J3370; J7030; J7512; Q9967

== ENCOUNTER 2020-10-26 13:18 | Inpatient (IN) | payer OTHER ==
[~2020-10-26] VITALS: Ht 170.2 cm; Wt 75.8 kg
[~2020-10-26 13:18] MED LIST: ASPIRIN81 MG PO; ATENOLOL50 MG PO; ATORVASTATIN CA10 MG PO; AUGMENTIN 875-1 EACH PO; BENZTROPINE MESY2 MG; EFFIENT10 MG PO; HALOPERIDOL10 MG PO; KRISTALOSE20 GM PO; LEVEMIR100 UNIT/1 SC; LITHIUM CARBON150 MG PO; LOSARTAN POTASS25 MG PO; MELOXICAM7.5 MG PO; METFORMIN HCL500 MG PO; NEXIUM40 MG; OMEPRAZOLE40 MG; PREDNISONE10 MG PO; PROAIR HFA INH8.5 GM INH; SPIRIVA18 MCG INH; TRAZODONE HCL150 MG PO
[2020-10-26] MEDS ORDERED: ALBUTEROL/IPRATROPIUM 3 ML NEB NEB ONE (13:30)
[2020-10-26 14:06] LABS: BASOPHILS # (AUTO) 0.1 (0.0-0.1); BASOPHILS % 0.9 % (0.0-1.0); EOSINOPHILS # (AUTO) 0.2 (0.0-0.4); EOSINOPHILS % 1.1 % (0.0-6.0); HEMATOCRIT 52.4 % (38.2-49.6); HEMOGLOBIN 16.3 g/dL (14.0-18.0); LYMPHOCYTES # (AUTO) 1.9 (1.0-3.2); LYMPHOCYTES % 13.2 % (18.0-39.1); MEAN CORPUSCULAR HGB CONC 31.1 g/dL (31-35); MEAN CORPUSCULAR VOLUME 93.2 fL (81-99); MONOCYTES # (AUTO) 0.6 (0.2-0.8); MONOCYTES % 4.1 % (4.4-11.3); NEUTROPHILS # (AUTO) 11.5 (2.1-6.9); NEUTROPHILS % 80.1 % (38.7-80.0); PLATELET COUNT 227 x10e3/uL (140-360); RED BLOOD COUNT 5.62 x10e6/uL (4.3-5.7); RED CELL DISTRIBUTION WIDTH 16.5 % (11.7-14.4)
[2020-10-26 14:33] LABS: ALANINE AMINOTRANSFERASE 13 IU/L (0-55); ALBUMIN 3.6 g/dL (3.5-5.0); ALKALINE PHOSPHATASE 96 IU/L (40-150); ANION GAP 15.9 mmol/L (8-16); BLOOD UREA NITROGEN 11 mg/dL (7-26); BUN/CREATININE RATIO 13 (6-25); CALCIUM 9.3 mg/dL (8.4-10.2); CARBON DIOXIDE 25 mmol/L (22-29); CHLORIDE 104 mmol/L (98-107); CREATININE, SERUM 0.87 mg/dL (0.72-1.25); EST GLOMERULAR FILTRATION RATE > 60 ML/MIN (60-); GLUCOSE 116 mg/dL (74-118); POTASSIUM 3.9 mmol/L (3.5-5.1); SODIUM 141 mmol/L (136-145)
[2020-10-26] MEDS ORDERED: SODIUM CHLORIDE 0.9% 50ML 50 ML ONE (14:53)
[2020-10-26] MEDS ORDERED: IOPAMIDOL 370 MG/ML 200 ML INFUS..BTL INJ ONE (14:53)
[2020-10-26] MEDS ORDERED: CEFTRIAXONE SOD 1 GM VIAL IM ONE (15:45)
[2020-10-26] MEDS ORDERED: DOXYCYCLINE 100MG/NS 100ML 100 ML IV SCH (16:00)
[2020-10-26] MEDS ORDERED: ALBUTEROL SULFATE HFA 8GM INHALATION AEROSOL INH PRN (16:30)
[2020-10-26] MEDS ORDERED: LACTATED RINGER'S 1,000 ML INJ ONE ×2 (16:30)
[2020-10-26] MEDS ORDERED: FUROSEMIDE INJ 10 MG/ML 2 ML VIAL IV ONE (16:45)
[2020-10-26] MEDS ORDERED: DEXTROSE 50% SYRINGE 50 ML IV PRN (16:45)
[2020-10-26] MEDS ORDERED: ALBUTEROL/IPRATROPIUM 3 ML NEB ONE (17:28)
[2020-10-26] MEDS: METHYLPREDNISOLONE SOD SUCC 125 MG/2ML VIAL IV SCH (18:46)
[2020-10-26] MEDS ORDERED: ONDANSETRON HCL INJ 2MG/ML 2ML 2 MG/ML VIAL IV PRN (19:00)
[2020-10-26] MEDS ORDERED: HYDRALAZINE HCL 20 MG/ML VIAL IV PRN (19:00)
[2020-10-26] MEDS ORDERED: MELATONIN 5 MG TABLET PO PRN (19:00)
[2020-10-26] MEDS ORDERED: ACETAMINOPHEN 325 MG TAB PO PRN (19:00)
[2020-10-26] MEDS ORDERED: ACETAMINOPHEN/CODEINE 300MG - 30MG TAB PO PRN (19:00)
[2020-10-26] MEDS: INSULIN GLARGINE 100 UNITS/ML VIAL SQ SCH (20:38)
[2020-10-26] MEDS: INSULIN REGULAR, HUMAN 100 UNIT/1 ML 3ML VIAL SQ SCH (20:38)
[2020-10-26] MEDS: ATORVASTATIN 10 MG TAB PO SCH (20:38)
[2020-10-26] MEDS ORDERED: ATORVASTATIN 20 MG TAB ONE (20:50)
[2020-10-26 21:00] VITALS: BP 123/91
[2020-10-26] MEDS ORDERED: INSULIN GLARGINE 100 UNITS/ML VIAL SQ SCH (21:00)
[2020-10-26] MEDS ORDERED: ZOLPIDEM TARTRATE 5 MG TAB PO PRN (21:00)
[2020-10-26 22:08] VITALS: BP 121/95
[2020-10-26 23:00] VITALS: BP_SYST 118; BP_SYST 121; BP_DIAS 87; BP_DIAS 95
[2020-10-26] MEDS: ALBUTEROL/IPRATROPIUM 3 ML NEB NEB SCH (23:50)
[2020-10-27] VITALS (23 sets, daily range): BP systolic 92–128; BP diastolic 58–87
[2020-10-27 00:11] LABS: CLARITY,URINE CLEAR (CLEAR); COLOR,URINE YELLOW (YELLOW); KETONES,URINE NEGATIVE (NEGATIVE); LEUKOCYTE ESTERASE ,URINE NEGATIVE (NEGATIVE); NITRITE,URINE NEGATIVE (NEGATIVE); PROTEIN,URINE DIPSTICK NEGATIVE (NEGATIVE); URINE UROBILINOGEN 0.2 mg/dL (0.2 - 1)
[2020-10-27 00:14] LABS: BACTERIA,URINE RARE /HPF; EPITHELIAL CELLS,URINE RARE /LPF; RBC,URINE 0-5 /HPF (0-5); WBC,URINE (MAN) 0-5 /HPF (0-5)
[2020-10-27 04:45] LABS: BASOPHILS % 0.2 % (0.0-1.0); HEMATOCRIT 44.8 % (38.2-49.6); LYMPHOCYTES # (AUTO) 0.5 (1.0-3.2); LYMPHOCYTES % 9.8 % (18.0-39.1); MEAN CORPUSCULAR HEMOGLOBIN 28.8 pg (28-32); MEAN CORPUSCULAR HGB CONC 31.3 g/dL (31-35); MEAN CORPUSCULAR VOLUME 92.2 fL (81-99); MONOCYTES # (AUTO) 0.1 (0.2-0.8); MONOCYTES % 2.5 % (4.4-11.3); NEUTROPHILS # (AUTO) 4.5 (2.1-6.9); NEUTROPHILS % 86.7 % (38.7-80.0); PLATELET COUNT 162 x10e3/uL (140-360); RED BLOOD COUNT 4.86 x10e6/uL (4.3-5.7); RED CELL DISTRIBUTION WIDTH 15.6 % (11.7-14.4)
[2020-10-27 05:13] LABS: ANION GAP 14.3 mmol/L (8-16); BLOOD UREA NITROGEN 11 mg/dL (7-26); BUN/CREATININE RATIO 14 (6-25); CALCIUM 8.7 mg/dL (8.4-10.2); CARBON DIOXIDE 25 mmol/L (22-29); CHLORIDE 106 mmol/L (98-107); CREATININE, SERUM 0.79 mg/dL (0.72-1.25); EST GLOMERULAR FILTRATION RATE > 60 ML/MIN (60-); GLUCOSE 194 mg/dL (74-118); POTASSIUM 4.3 mmol/L (3.5-5.1); SODIUM 141 mmol/L (136-145)
[2020-10-27] MEDS: TIOTROPIUM 18 MCG INH POWDER INH SCH (06:00)
[2020-10-27] MEDS: DOXYCYCLINE 100MG/NS 100ML 100 ML IV SCH ×2 (06:04→17:00)
[2020-10-27] MEDS: METHYLPREDNISOLONE SOD SUCC 125 MG/2ML VIAL IV SCH ×2 (06:07→16:42)
[2020-10-27] MEDS: ALBUTEROL/IPRATROPIUM 3 ML NEB NEB SCH ×3 (07:14→19:56)
[2020-10-27] MEDS: ATENOLOL 50 MG TAB PO SCH (08:06)
[2020-10-27] MEDS: PANTOPRAZOLE SOD 40 MG TABEC PO SCH (08:06)
[2020-10-27] MEDS: ASPIRIN 81 MG CHEW TAB PO SCH (08:06)
[2020-10-27] MEDS: INSULIN REGULAR, HUMAN 100 UNIT/1 ML 3ML VIAL SQ SCH ×4 (08:08→20:57)
[2020-10-27] MEDS ORDERED: FUROSEMIDE INJ 10 MG/ML 2 ML VIAL IV ONE (10:15)
[2020-10-27] MEDS ORDERED: CEFEPIME HCL 1 GM VIAL IV SCH (14:00)
[2020-10-27] MEDS: CEFEPIME HCL 1GM 1 GM in SODIUM CHLORIDE 0.9% 50ML 50 ML IV SCH ×2 (14:04→20:57)
[2020-10-27] MEDS ORDERED: SODIUM CHLORIDE 0.9% 250ML 250 ML ONE (14:12)
[2020-10-27] MEDS: ATORVASTATIN 10 MG TAB PO SCH (20:57)
[2020-10-27] MEDS: INSULIN GLARGINE 100 UNITS/ML VIAL SQ SCH (20:58)
[2020-10-28] VITALS (25 sets, daily range): BP systolic 83–136; BP diastolic 60–111
[2020-10-28] MEDS: ALBUTEROL/IPRATROPIUM 3 ML NEB NEB SCH ×4 (00:37→19:40)
[2020-10-28 04:46] LABS: BASOPHILS % 0.1 % (0.0-1.0); HEMATOCRIT 43.9 % (38.2-49.6); HEMOGLOBIN 13.7 g/dL (14.0-18.0); LYMPHOCYTES # (AUTO) 0.7 (1.0-3.2); LYMPHOCYTES % 7.1 % (18.0-39.1); MEAN CORPUSCULAR HEMOGLOBIN 28.6 pg (28-32); MEAN CORPUSCULAR HGB CONC 31.2 g/dL (31-35); MEAN CORPUSCULAR VOLUME 91.6 fL (81-99); MONOCYTES # (AUTO) 0.4 (0.2-0.8); MONOCYTES % 4.3 % (4.4-11.3); NEUTROPHILS # (AUTO) 8.9 (2.1-6.9); PLATELET COUNT 188 x10e3/uL (140-360); RED BLOOD COUNT 4.79 x10e6/uL (4.3-5.7); RED CELL DISTRIBUTION WIDTH 15.7 % (11.7-14.4)
[2020-10-28 05:06] LABS: ALANINE AMINOTRANSFERASE 11 IU/L (0-55); ALBUMIN 2.8 g/dL (3.5-5.0); ALKALINE PHOSPHATASE 64 IU/L (40-150); ANION GAP 15.4 mmol/L (8-16); BLOOD UREA NITROGEN 18 mg/dL (7-26); BUN/CREATININE RATIO 24 (6-25); CALCIUM 8.5 mg/dL (8.4-10.2); CARBON DIOXIDE 24 mmol/L (22-29); CHLORIDE 106 mmol/L (98-107); CREATININE, SERUM 0.76 mg/dL (0.72-1.25); EST GLOMERULAR FILTRATION RATE > 60 ML/MIN (60-); GLUCOSE 142 mg/dL (74-118); POTASSIUM 4.4 mmol/L (3.5-5.1); SODIUM 141 mmol/L (136-145)
[2020-10-28] MEDS: CEFEPIME HCL 1GM 1 GM in SODIUM CHLORIDE 0.9% 50ML 50 ML IV SCH ×3 (05:33→21:03)
[2020-10-28] MEDS: METHYLPREDNISOLONE SOD SUCC 125 MG/2ML VIAL IV SCH ×2 (05:33→17:13)
[2020-10-28] MEDS: DOXYCYCLINE 100MG/NS 100ML 100 ML IV SCH ×2 (05:33→17:13)
[2020-10-28] MEDS: TIOTROPIUM 18 MCG INH POWDER INH SCH (06:00)
[2020-10-28] MEDS: INSULIN REGULAR, HUMAN 100 UNIT/1 ML 3ML VIAL SQ SCH ×4 (07:30→21:04)
[2020-10-28] MEDS: ATENOLOL 50 MG TAB PO SCH (08:05)
[2020-10-28] MEDS: PANTOPRAZOLE SOD 40 MG TABEC PO SCH (08:41)
[2020-10-28] MEDS: ASPIRIN 81 MG CHEW TAB PO SCH (08:41)
[2020-10-28] MEDS: LORAZEPAM 0.5 MG TAB PO PRN ×2 (12:03→17:49)
[2020-10-28] MEDS ORDERED: NON-FORMULARY MEDICATION (Lithium Carbonate 600 MG) PO SCH (21:00)
[2020-10-28] MEDS ORDERED: HALOPERIDOL 10 MG PO SCH (21:00)
[2020-10-28] MEDS: LITHIUM CARBONATE ER 300 MG TAB PO SCH (21:03)
[2020-10-28] MEDS: ATORVASTATIN 10 MG TAB PO SCH (21:03)
[2020-10-28] MEDS: HALOPERIDOL 5 MG TAB PO SCH (21:03)
[2020-10-28] MEDS: TRAZODONE HCL 50 MG TAB PO SCH (21:03)
[2020-10-28] MEDS: INSULIN GLARGINE 100 UNITS/ML VIAL SQ SCH (21:04)
[2020-10-29] VITALS (27 sets, daily range): BP systolic 88–133; BP diastolic 54–97
[2020-10-29] MEDS: ALBUTEROL/IPRATROPIUM 3 ML NEB NEB SCH ×5 (00:58→23:57)
[2020-10-29] MEDS: CEFEPIME HCL 1GM 1 GM in SODIUM CHLORIDE 0.9% 50ML 50 ML IV SCH ×3 (05:00→21:08)
[2020-10-29] MEDS: METHYLPREDNISOLONE SOD SUCC 125 MG/2ML VIAL IV SCH ×2 (05:00→17:20)
[2020-10-29] MEDS: TIOTROPIUM 18 MCG INH POWDER INH SCH (06:00)
[2020-10-29] MEDS: DOXYCYCLINE 100MG/NS 100ML 100 ML IV SCH ×2 (06:00→17:20)
[2020-10-29 06:11] LABS: BASOPHILS % 0.1 % (0.0-1.0); EOSINOPHILS % 0.1 % (0.0-6.0); HEMATOCRIT 43.2 % (38.2-49.6); HEMOGLOBIN 13.4 g/dL (14.0-18.0); LYMPHOCYTES # (AUTO) 0.7 (1.0-3.2); LYMPHOCYTES % 8.2 % (18.0-39.1); MEAN CORPUSCULAR HEMOGLOBIN 28.9 pg (28-32); MEAN CORPUSCULAR VOLUME 93.1 fL (81-99); MONOCYTES # (AUTO) 0.4 (0.2-0.8); MONOCYTES % 4.6 % (4.4-11.3); NEUTROPHILS # (AUTO) 6.8 (2.1-6.9); NEUTROPHILS % 86.5 % (38.7-80.0); PLATELET COUNT 190 x10e3/uL (140-360); RED BLOOD COUNT 4.64 x10e6/uL (4.3-5.7); RED CELL DISTRIBUTION WIDTH 15.9 % (11.7-14.4)
[2020-10-29 06:43] LABS: ANION GAP 11.1 mmol/L (8-16); BLOOD UREA NITROGEN 16 mg/dL (7-26); BUN/CREATININE RATIO 23 (6-25); CALCIUM 8.4 mg/dL (8.4-10.2); CARBON DIOXIDE 26 mmol/L (22-29); CHLORIDE 107 mmol/L (98-107); CREATININE, SERUM 0.69 mg/dL (0.72-1.25); EST GLOMERULAR FILTRATION RATE > 60 ML/MIN (60-); GLUCOSE 137 mg/dL (74-118); POTASSIUM 4.1 mmol/L (3.5-5.1); SODIUM 140 mmol/L (136-145)
[2020-10-29] MEDS: ATENOLOL 50 MG TAB PO SCH (08:23)
[2020-10-29] MEDS: ASPIRIN 81 MG CHEW TAB PO SCH (08:23)
[2020-10-29] MEDS: PANTOPRAZOLE SOD 40 MG TABEC PO SCH (08:23)
[2020-10-29] MEDS: INSULIN REGULAR, HUMAN 100 UNIT/1 ML 3ML VIAL SQ SCH ×4 (08:23→21:09)
[2020-10-29] MEDS: LITHIUM CARBONATE ER 300 MG TAB PO SCH (21:08)
[2020-10-29] MEDS: HALOPERIDOL 5 MG TAB PO SCH (21:08)
[2020-10-29] MEDS: ATORVASTATIN 10 MG TAB PO SCH (21:08)
[2020-10-29] MEDS: TRAZODONE HCL 50 MG TAB PO SCH (21:08)
[2020-10-29] MEDS: INSULIN GLARGINE 100 UNITS/ML VIAL SQ SCH (21:09)
[2020-10-30] VITALS (20 sets, daily range): BP systolic 96–155; BP diastolic 66–106
[2020-10-30] MEDS: METHYLPREDNISOLONE SOD SUCC 125 MG/2ML VIAL IV SCH ×2 (05:00→17:50)
[2020-10-30] MEDS: CEFEPIME HCL 1GM 1 GM in SODIUM CHLORIDE 0.9% 50ML 50 ML IV SCH ×3 (05:10→21:51)
[2020-10-30 05:59] LABS: EOSINOPHILS % 0.1 % (0.0-6.0); HEMATOCRIT 44.4 % (38.2-49.6); HEMOGLOBIN 13.9 g/dL (14.0-18.0); LYMPHOCYTES # (AUTO) 0.7 (1.0-3.2); LYMPHOCYTES % 8.8 % (18.0-39.1); MEAN CORPUSCULAR HEMOGLOBIN 29.1 pg (28-32); MEAN CORPUSCULAR HGB CONC 31.3 g/dL (31-35); MEAN CORPUSCULAR VOLUME 92.9 fL (81-99); MONOCYTES # (AUTO) 0.4 (0.2-0.8); MONOCYTES % 5.1 % (4.4-11.3); NEUTROPHILS # (AUTO) 7.1 (2.1-6.9); NEUTROPHILS % 85.4 % (38.7-80.0); PLATELET COUNT 197 x10e3/uL (140-360); RED BLOOD COUNT 4.78 x10e6/uL (4.3-5.7); RED CELL DISTRIBUTION WIDTH 15.7 % (11.7-14.4)
[2020-10-30] MEDS: TIOTROPIUM 18 MCG INH POWDER INH SCH (06:00)
[2020-10-30 06:18] LABS: ALANINE AMINOTRANSFERASE 10 IU/L (0-55); ALBUMIN 2.9 g/dL (3.5-5.0); ALBUMIN/GLOBULIN RATIO 1.2 (0.8-2.0); ALKALINE PHOSPHATASE 48 IU/L (40-150); ANION GAP 13.3 mmol/L (8-16); BLOOD UREA NITROGEN 17 mg/dL (7-26); BUN/CREATININE RATIO 22 (6-25); CALCIUM 8.6 mg/dL (8.4-10.2); CARBON DIOXIDE 26 mmol/L (22-29); CHLORIDE 106 mmol/L (98-107); CREATININE, SERUM 0.77 mg/dL (0.72-1.25); EST GLOMERULAR FILTRATION RATE > 60 ML/MIN (60-); GLUCOSE 175 mg/dL (74-118); POTASSIUM 4.3 mmol/L (3.5-5.1); SODIUM 141 mmol/L (136-145)
[2020-10-30] MEDS: DOXYCYCLINE 100MG/NS 100ML 100 ML IV SCH ×2 (06:43→17:50)
[2020-10-30] MEDS: ALBUTEROL/IPRATROPIUM 3 ML NEB NEB SCH ×3 (07:10→19:20)
[2020-10-30] MEDS: INSULIN REGULAR, HUMAN 100 UNIT/1 ML 3ML VIAL SQ SCH ×4 (07:30→21:00)
[2020-10-30] MEDS: PANTOPRAZOLE SOD 40 MG TABEC PO SCH (08:32)
[2020-10-30] MEDS: ASPIRIN 81 MG CHEW TAB PO SCH (08:32)
[2020-10-30] MEDS: ATENOLOL 50 MG TAB PO SCH (08:33)
[2020-10-30] MEDS ORDERED: GUAIFENESIN 600MG/DEXTROMETHORPHAN 30MG TABSR PO PRN (13:30)
[2020-10-30] MEDS: INSULIN GLARGINE 100 UNITS/ML VIAL SQ SCH ×2 (21:00→21:42)
[2020-10-30] MEDS: TRAZODONE HCL 50 MG TAB PO SCH ×3 (21:00→22:54)
[2020-10-30] MEDS: ATORVASTATIN 10 MG TAB PO SCH (21:27)
[2020-10-30] MEDS: HALOPERIDOL 5 MG TAB PO SCH (21:27)
[2020-10-30] MEDS: LITHIUM CARBONATE ER 300 MG TAB PO SCH (21:27)
[2020-10-30] MEDS ORDERED: SODIUM CHLORIDE 0.9% 250ML 250 ML ONE (22:43)
[2020-10-31] VITALS (8 sets, daily range): BP systolic 134–160; BP diastolic 75–93
[2020-10-31] MEDS: ALBUTEROL/IPRATROPIUM 3 ML NEB NEB SCH ×4 (01:23→19:28)
[2020-10-31 05:09] LABS: BASOPHILS % 0.1 % (0.0-1.0); EOSINOPHILS % 0.3 % (0.0-6.0); HEMATOCRIT 45.1 % (38.2-49.6); HEMOGLOBIN 14.1 g/dL (14.0-18.0); LYMPHOCYTES # (AUTO) 0.8 (1.0-3.2); LYMPHOCYTES % 9.8 % (18.0-39.1); MEAN CORPUSCULAR HEMOGLOBIN 28.9 pg (28-32); MEAN CORPUSCULAR HGB CONC 31.3 g/dL (31-35); MEAN CORPUSCULAR VOLUME 92.4 fL (81-99); MONOCYTES # (AUTO) 0.4 (0.2-0.8); MONOCYTES % 4.9 % (4.4-11.3); NEUTROPHILS # (AUTO) 6.5 (2.1-6.9); NEUTROPHILS % 84.3 % (38.7-80.0); PLATELET COUNT 173 x10e3/uL (140-360); RED BLOOD COUNT 4.88 x10e6/uL (4.3-5.7); RED CELL DISTRIBUTION WIDTH 15.3 % (11.7-14.4)
[2020-10-31 05:31] LABS: ANION GAP 11.3 mmol/L (8-16); BLOOD UREA NITROGEN 19 mg/dL (7-26); BUN/CREATININE RATIO 25 (6-25); CALCIUM 8.4 mg/dL (8.4-10.2); CARBON DIOXIDE 29 mmol/L (22-29); CHLORIDE 106 mmol/L (98-107); CREATININE, SERUM 0.77 mg/dL (0.72-1.25); EST GLOMERULAR FILTRATION RATE > 60 ML/MIN (60-); GLUCOSE 122 mg/dL (74-118); POTASSIUM 4.3 mmol/L (3.5-5.1); SODIUM 142 mmol/L (136-145)
[2020-10-31] MEDS: CEFEPIME HCL 1GM 1 GM in SODIUM CHLORIDE 0.9% 50ML 50 ML IV SCH ×3 (05:35→21:00)
[2020-10-31] MEDS: METHYLPREDNISOLONE SOD SUCC 125 MG/2ML VIAL IV SCH ×2 (05:35→17:00)
[2020-10-31] MEDS: DOXYCYCLINE 100MG/NS 100ML 100 ML IV SCH ×2 (05:58→18:00)
[2020-10-31] MEDS: TIOTROPIUM 18 MCG INH POWDER INH SCH (06:00)
[2020-10-31] MEDS: INSULIN REGULAR, HUMAN 100 UNIT/1 ML 3ML VIAL SQ SCH ×4 (07:30→21:00)
[2020-10-31] MEDS: ASPIRIN 81 MG CHEW TAB PO SCH (09:00)
[2020-10-31] MEDS: PANTOPRAZOLE SOD 40 MG TABEC PO SCH (09:00)
[2020-10-31] MEDS: LITHIUM CARBONATE ER 300 MG TAB PO SCH (21:00)
[2020-10-31] MEDS: TRAZODONE HCL 50 MG TAB PO SCH (21:00)
[2020-10-31] MEDS: INSULIN GLARGINE 100 UNITS/ML VIAL SQ SCH (21:00)
[2020-10-31] MEDS: ATORVASTATIN 10 MG TAB PO SCH (21:00)
[2020-10-31] MEDS: HALOPERIDOL 5 MG TAB PO SCH (21:00)
[2020-11-01] VITALS (8 sets, daily range): BP systolic 100–156; BP diastolic 74–92
[2020-11-01] MEDS: ALBUTEROL/IPRATROPIUM 3 ML NEB NEB SCH ×4 (01:25→19:35)
[2020-11-01] MEDS: METHYLPREDNISOLONE SOD SUCC 125 MG/2ML VIAL IV SCH (05:26)
[2020-11-01] MEDS: CEFEPIME HCL 1GM 1 GM in SODIUM CHLORIDE 0.9% 50ML 50 ML IV SCH ×3 (05:26→22:31)
[2020-11-01] MEDS: TIOTROPIUM 18 MCG INH POWDER INH SCH (06:00)
[2020-11-01] MEDS: DOXYCYCLINE 100MG/NS 100ML 100 ML IV SCH ×2 (06:36→15:56)
[2020-11-01] MEDS: ASPIRIN 81 MG CHEW TAB PO SCH (08:15)
[2020-11-01] MEDS: PANTOPRAZOLE SOD 40 MG TABEC PO SCH (08:16)
[2020-11-01] MEDS: LOSARTAN POTASSIUM 25 MG TAB PO SCH (08:16)
[2020-11-01] MEDS: METOPROLOL SUCCINATE 25 MG TAB XL PO SCH (08:16)
[2020-11-01] MEDS: INSULIN REGULAR, HUMAN 100 UNIT/1 ML 3ML VIAL SQ SCH ×4 (08:29→22:39)
[2020-11-01] MEDS ORDERED: CARVEDILOL 3.125 MG TAB PO SCH (09:00)
[2020-11-01] MEDS: METHYLPREDNISOLONE SOD SUCC 40 MG/ML VIAL 1ML IV SCH (15:56)
[2020-11-01] MEDS: LITHIUM CARBONATE ER 300 MG TAB PO SCH (21:00)
[2020-11-01] MEDS: ATORVASTATIN 10 MG TAB PO SCH (21:00)
[2020-11-01] MEDS: HALOPERIDOL 5 MG TAB PO SCH (21:00)
[2020-11-01] MEDS: TRAZODONE HCL 50 MG TAB PO SCH (21:00)
[2020-11-01] MEDS: INSULIN GLARGINE 100 UNITS/ML VIAL SQ SCH (22:40)
[2020-11-02] VITALS (7 sets, daily range): BP systolic 98–123; BP diastolic 58–86
[2020-11-02] MEDS: ALBUTEROL/IPRATROPIUM 3 ML NEB NEB SCH ×3 (00:42→19:30)
[2020-11-02] MEDS: CEFEPIME HCL 1GM 1 GM in SODIUM CHLORIDE 0.9% 50ML 50 ML IV SCH ×3 (05:25→20:40)
[2020-11-02] MEDS: METHYLPREDNISOLONE SOD SUCC 40 MG/ML VIAL 1ML IV SCH ×2 (05:25→16:45)
[2020-11-02 05:34] LABS: BASOPHILS % 0.1 % (0.0-1.0); EOSINOPHILS # (AUTO) 0.2 (0.0-0.4); EOSINOPHILS % 1.7 % (0.0-6.0); HEMATOCRIT 48.8 % (38.2-49.6); HEMOGLOBIN 15.3 g/dL (14.0-18.0); LYMPHOCYTES % 7.6 % (18.0-39.1); MEAN CORPUSCULAR HEMOGLOBIN 28.9 pg (28-32); MEAN CORPUSCULAR HGB CONC 31.4 g/dL (31-35); MEAN CORPUSCULAR VOLUME 92.2 fL (81-99); MONOCYTES # (AUTO) 0.7 (0.2-0.8); MONOCYTES % 4.8 % (4.4-11.3); NEUTROPHILS # (AUTO) 11.5 (2.1-6.9); NEUTROPHILS % 85.3 % (38.7-80.0); PLATELET COUNT 190 x10e3/uL (140-360); RED BLOOD COUNT 5.29 x10e6/uL (4.3-5.7); RED CELL DISTRIBUTION WIDTH 14.9 % (11.7-14.4)
[2020-11-02] MEDS: TIOTROPIUM 18 MCG INH POWDER INH SCH (06:00)
[2020-11-02] MEDS: DOXYCYCLINE 100MG/NS 100ML 100 ML IV SCH ×2 (06:00→16:45)
[2020-11-02 06:16] LABS: ANION GAP 10.8 mmol/L (8-16); BLOOD UREA NITROGEN 15 mg/dL (7-26); BUN/CREATININE RATIO 23 (6-25); CALCIUM 8.7 mg/dL (8.4-10.2); CARBON DIOXIDE 33 mmol/L (22-29); CHLORIDE 104 mmol/L (98-107); CREATININE, SERUM 0.66 mg/dL (0.72-1.25); EST GLOMERULAR FILTRATION RATE > 60 ML/MIN (60-); GLUCOSE 131 mg/dL (74-118); POTASSIUM 3.8 mmol/L (3.5-5.1); SODIUM 144 mmol/L (136-145)
[2020-11-02] MEDS: INSULIN REGULAR, HUMAN 100 UNIT/1 ML 3ML VIAL SQ SCH ×4 (07:30→20:05)
[2020-11-02] MEDS: ASPIRIN 81 MG CHEW TAB PO SCH (08:35)
[2020-11-02] MEDS: METOPROLOL SUCCINATE 25 MG TAB XL PO SCH (08:36)
[2020-11-02] MEDS: PANTOPRAZOLE SOD 40 MG TABEC PO SCH (08:36)
[2020-11-02] MEDS: LOSARTAN POTASSIUM 25 MG TAB PO SCH (08:36)
[2020-11-02] MEDS ORDERED: ONDANSETRON HCL 4 MG ORAL DISINTEGRATING TAB PO PRN (14:00)
[2020-11-02] MEDS: INSULIN GLARGINE 100 UNITS/ML VIAL SQ SCH (20:27)
[2020-11-02] MEDS: ATORVASTATIN 10 MG TAB PO SCH (20:40)
[2020-11-02] MEDS: TRAZODONE HCL 50 MG TAB PO SCH (20:40)
[2020-11-02] MEDS: HALOPERIDOL 5 MG TAB PO SCH (20:40)
[2020-11-02] MEDS: LITHIUM CARBONATE ER 300 MG TAB PO SCH (20:40)
[2020-11-03] VITALS (8 sets, daily range): BP systolic 89–124; BP diastolic 61–81
[2020-11-03] MEDS: ALBUTEROL/IPRATROPIUM 3 ML NEB NEB SCH ×4 (01:20→19:10)
[2020-11-03] MEDS: CEFEPIME HCL 1GM 1 GM in SODIUM CHLORIDE 0.9% 50ML 50 ML IV SCH ×3 (04:47→21:26)
[2020-11-03] MEDS: METHYLPREDNISOLONE SOD SUCC 40 MG/ML VIAL 1ML IV SCH ×2 (04:47→16:58)
[2020-11-03] MEDS: TIOTROPIUM 18 MCG INH POWDER INH SCH (06:00)
[2020-11-03] MEDS: DOXYCYCLINE 100MG/NS 100ML 100 ML IV SCH ×2 (06:00→16:58)
[2020-11-03] MEDS: ASPIRIN 81 MG CHEW TAB PO SCH (08:27)
[2020-11-03] MEDS: PANTOPRAZOLE SOD 40 MG TABEC PO SCH (08:28)
[2020-11-03] MEDS: LOSARTAN POTASSIUM 25 MG TAB PO SCH (08:28)
[2020-11-03] MEDS: METOPROLOL SUCCINATE 25 MG TAB XL PO SCH (08:29)
[2020-11-03] MEDS: INSULIN REGULAR, HUMAN 100 UNIT/1 ML 3ML VIAL SQ SCH ×4 (08:44→21:31)
[2020-11-03] MEDS ORDERED: ATORVASTATIN 40 MG TAB PO SCH (21:00)
[2020-11-03] MEDS: TRAZODONE HCL 50 MG TAB PO SCH (21:26)
[2020-11-03] MEDS: LITHIUM CARBONATE ER 300 MG TAB PO SCH (21:26)
[2020-11-03] MEDS: HALOPERIDOL 5 MG TAB PO SCH (21:26)
[2020-11-03] MEDS: INSULIN GLARGINE 100 UNITS/ML VIAL SQ SCH (21:31)
[2020-11-04 00:25] VITALS: BP 104/65
[2020-11-04] MEDS: ALBUTEROL/IPRATROPIUM 3 ML NEB NEB SCH ×3 (01:10→13:00)
[2020-11-04 04:25] VITALS: BP 111/76
[2020-11-04] MEDS: CEFEPIME HCL 1GM 1 GM in SODIUM CHLORIDE 0.9% 50ML 50 ML IV SCH ×2 (04:51→14:03)
[2020-11-04] MEDS: METHYLPREDNISOLONE SOD SUCC 40 MG/ML VIAL 1ML IV SCH (04:51)
[2020-11-04] MEDS: TIOTROPIUM 18 MCG INH POWDER INH SCH (06:00)
[2020-11-04] MEDS: DOXYCYCLINE 100MG/NS 100ML 100 ML IV SCH (06:29)
[2020-11-04] MEDS: INSULIN REGULAR, HUMAN 100 UNIT/1 ML 3ML VIAL SQ SCH ×2 (07:30→14:02)
[2020-11-04 09:00] VITALS: BP 116/75
[2020-11-04] MEDS: ASPIRIN 81 MG CHEW TAB PO SCH (10:47)
[2020-11-04] MEDS: LOSARTAN POTASSIUM 25 MG TAB PO SCH (10:47)
[2020-11-04] MEDS: PANTOPRAZOLE SOD 40 MG TABEC PO SCH (10:47)
[2020-11-04] MEDS: METOPROLOL SUCCINATE 25 MG TAB XL PO SCH (10:48)
[2020-11-04 11:49] VITALS: BP 112/82
[2020-11-04] MEDS ORDERED: TOPROL XL25 MG PO (13:49)
[2020-11-04] MEDS ORDERED: MELATONIN5 M2 PO (13:49)
[2020-11-04] MEDS ORDERED: MUCINEX DM ER1 EACH PO (13:49)
[2020-11-04] MEDS ORDERED: ONDANSETRON ODT4 MG PO (13:49)
[2020-11-04] MEDS ORDERED: HUMULIN R100 UNIT/2 SQ (13:49)
[2020-11-04] MEDS ORDERED: PREDNISONE10 MG PO ×2 (14:03→14:06)
== END 2020-11-04 16:17 | disposition home or self-care (01) | DRG 871 ==
LOC: ER 13:27 → ERHOLD 15:45 → ICU 20:54 → MED/SURG2 10-30 22:04
PROVIDERS: ADMIT Internal Medicine; ATTEND Internal Medicine
DX: A41.9 Sepsis, unspecified organism (principal); I50.31 Acute diastolic (congestive) heart failure; J18.0 Bronchopneumonia, unspecified organism; J96.21 Acute and chronic respiratory failure with hypoxia; J44.1 Chronic obstructive pulmonary disease with (acute) exacerbation; J62.8 Pneumoconiosis due to other dust containing silica; I11.0 Hypertensive heart disease with heart failure; E11.65 Type 2 diabetes mellitus with hyperglycemia; R65.20 Severe sepsis without septic shock; E78.5 Hyperlipidemia, unspecified; Z95.5 Presence of coronary angioplasty implant and graft; Z90.49 Acquired absence of other specified parts of digestive tract; Z87.891 Personal history of nicotine dependence; I25.10 Atherosclerotic heart disease of native coronary artery without angina pectoris; Z20.822 Contact with and (suspected) exposure to COVID-19; I27.81 Cor pulmonale (chronic); Z79.82 Long term (current) use of aspirin; Z79.4 Long term (current) use of insulin
CPT/HCPCS: 36415; 71045; 71260; 74230; 80048; 80053; 81001; 82948; 83605; 83880; 84484; 85025; 87040; 93005; 93306; 94640; 96372; 97139; 99285; J0692; J0696; J1815; J1817; J1940; J2920; J2930; J7050; Q9967; U0002